=== PATIENT | female | born 1985 | race Caucasian/White ===

== ENCOUNTER 2021-11-18 06:53 | Inpatient (IN) ==
[2021-11-18] MEDS ORDERED: ONDANSETRON INJ 2 MG/ML 2 ML VIAL IV STA (07:24)
[2021-11-18] MEDS ORDERED: SODIUM CHLORIDE 0.9% 1000ML 1,000 ML IV SCH (07:26)
--- NOTE | 2021-11-18 07:35 | Emergency Department Note ---
History of Present Illness General Chief complaint: Shortness of Breath/Dyspnea Stated complaint: SOB,NAUSEA,VOMITING,CHEST PAIN Time Seen by Provider: 11/18/21 07:03 History of Present Illness Maximum Pain Intensity: 9 Patient is a 36-year-old female with past medical history significant for hypothyroidism, diabetes, and on suppressive doxycycline for recurrent abscesses who presents to the emergency department for evaluation of nausea, vomiting, chest pain and shortness of breath that started over the last 3 to 4 days. Patient notes that she saw her primary care provider last week. Apparently her blood sugars have been increasing, so he increased her Metformin and started her on Rybelsus. She states that since being on the Rybelsus, she has been nauseous and vomiting. She states that she was up hourly overnight vomiting and has not been able to keep any food or water down over the last several days. She feels quite weak and dizzy. She talked to her doctor yesterday and he told her to stop the Rybelsus and dropped down to the original dose of Metformin. This did not change her symptoms. She does not check her blood sugars at home. She also notes bilateral rib pain and shortness of breath that started overnight. She denies any fever or chills, cold or URI symptoms. No sick contacts at home. She does not have any abdominal pain or diarrhea or urinary symptoms. She is not vaccinated against influenza or Covid. Last menstrual period started yesterday. She is a smoker. Home Medications Medication Instructions Recorded Confirmed Type doxycycline hyclate 100 mg capsule 100 mg PO DAILY 11/18/21 11/18/21 History levothyroxine 175 mcg tablet 175 mcg PO DAILY 11/18/21 11/18/21 History metformin 500 mg tablet 500 mg PO BID 11/18/21 11/18/21 History Allergies Allergy/AdvReac Type Severity Reaction Status Date / Time Sulfa (Sulfonamide Allergy Mild Hives Verified 11/18/21 07:24 Antibiotics) Past Med/Surg History Medical History Diabetes Hypothyroidism Surgical History H/O tubal ligation History of thyroidectomy Social History Smoking Status: Current every day smoker Preferred Language: [place] marital status: Current Living Situation: Family current occupational status: unemployed Feels Safe at Home: Yes Review of Systems A total of 10 systems reviewed and were otherwise negative Physical Exam Vital Signs Vital Signs - 24 hr 11/18/21 06:57 11/18/21 08:00 11/18/21 09:11 Temperature 37.0 C Temperature Source Temporal Artery Scan Pulse Rate 145 H Pulse Rate [Left Finger] 131 H Pulse Rhythm [Left Finger] Irregular Pulse Strength [Left Finger] Bounding Respiratory Rate 20 30 H Respiratory Effort / Characteristics Non-Labored Labored Labored Respiratory Depth Normal Respiratory Pattern Regular Blood Pressure 115/74 Blood Pressure [Left Arm] 151/105 H Blood Pressure Mean 87 Blood Pressure Mean [Left Arm] 120 Blood Pressure Position Sitting Blood Pressure Position [Left Arm] Sitting Pulse Oximetry 99 97 Oxygen Delivery Method Room Air Room Air Sepsis Recent Fever Within 48 Hours No Sepsis New/Unexplained Change in Mental Status No Sepsis Action Taken by Nursing No Action Required Pulse Oximetry Post Tiitration 11/18/21 10:08 11/18/21 11:00 11/18/21 12:00 Temperature Temperature Source Pulse Rate Pulse Rate [Left Finger] 143 H 144 H Pulse Rhythm [Left Finger] Regular Regular Pulse Strength [Left Finger] Normal Normal Respiratory Rate 32 H 36 H Respiratory Effort / Characteristics Accessory Muscle Use Spontaneous Accessory Muscle Use Respiratory Depth Deep Deep Respiratory Pattern Rapid/Deep Rapid/Deep Blood Pressure Blood Pressure [Left Arm] 149/86 H 140/98 Blood Pressure Mean Blood Pressure Mean [Left Arm] 107 112 Blood Pressure Position Blood Pressure Position [Left Arm] Lying Lying Pulse Oximetry 93 93 Oxygen Delivery Method Room Air Room Air Room Air Sepsis Recent Fever Within 48 Hours Sepsis New/Unexplained Change in Mental Status Sepsis Action Taken by Nursing Pulse Oximetry Post Tiitration 100 CONSTITUTIONAL: Patient is an ill although nontoxic appearing 36-year-old female who is awake and alert and laying on the gurney. She is notably tachycardic. Not tachypneic. Oxygen saturation 99% on room air. EYES: Pupils equal, round, reactive to light and accommodation. EOMs intact without nystagmus. Sclera are anicteric. ENT: Tympanic membranes intact, with normal landmarks. External canals are clear. Oral and nasopharynx are clear. Mucous membranes are dry, no lesions, tongue and gums appear normal. NECK: Supple without lymphadenopathy. No thyromegaly. No meningeal signs. Full active range of motion without discomfort. CARDIOVASCULAR: Tachycardic rate and rhythm, with normal S1 and S2, no murmur or gallop or rub is heard. No carotid bruits auscultated. No JVD. Peripheral pulses easy to palpable. RESPIRATORY: Breath sounds equal and clear to auscultation without wheezes, rales, or rhonchi heard. Full and equal chest expansion without accessory muscle use or retractions. GI: Bowel sounds are present. Abdomen is soft, nontender, nondistended. No organomegaly. No pulsatile masses. No guarding or rebound. MUSCULOSKELETAL: Full range of motion of extremities x 4 with good strength. No cyanosis, edema, joint tenderness or swelling. No deformity. INTEGUMENTARY: No lesions or rash, normal skin turgor. NEUROLOGICAL: Alert, oriented, and cooperative. Cranial nerves, sensation and strength grossly intact. Pupils round, equal, and react to light, EOMs are full. LYMPH: No lymphadenopathy. Course Course The patient was seen and assessed as above. Old records are reviewed. She presents the emergency department for evaluation of chest pain, shortness of breath, nausea, vomiting weakness over the last 3 to 4 days. IV lock was initiated and laboratory studies were collected. CBC with differential, D- dimer, serum hCG, troponin, TSH, CMP, lipase, urinalysis were ordered. She was ordered a liter bolus of normal saline solution and Zofran 4 mg IV. Nursing staff asked if we could give her the Zofran ODT as they were having difficulty obtaining access. EKG was obtained, and is as noted below. A fingerstick BSG was collected and read high on the meter, greater than 600. Patient's presentation appears consistent with DKA. Patient was reviewed with attending physician, Dr. Martinez, who concurred. A VBG was ordered in addition to hemoglobin A1c, mag, phosphorus and a lactic acid. An insulin drip was started per protocol. Patient was reassessed. Nursing staff had just finished getting IVs and blood work. Discussed her current condition and that she would need to be admitted to the hospital. She is complaining of chest and rib discomfort. She is asking if she can drink. She was given ice chips and ordered fentanyl 50 mcg IV. At this point, despite not having most of the patient's laboratory studies back, consultation was placed with the [facility] hospitalist service, Dr. Shin for admission. Preadmission Covid test was negative. Chest x-ray notes low lung volumes with bibasilar opacities which may reflect an infectious process or atelectasis. Patient's laboratory studies are markedly abnormal. White count elevated at 26,700. D-dimer was elevated at 810. Electrolytes sodium 133, potassium 4.6, chloride 101, carbon dioxide 5, anion gap of 28. BUN 18, creatinine 1.56. Original lactate was 4, repeat in 2 hours was 6.1. Calcium 10.0, phosphorus 7.9, magnesium 2.4. Transaminases are normal. Troponin is negative. Lipase is within normal limits. TSH is low, free T4 within normal limits however. Serum hCG is negative. Urine microscopy grossly contaminated with blood, glucose, ketones and protein. Nitrate negative. Culture is pending. I was contacted by in-house pharmacist requesting changed of the patient's maintenance fluids from normal saline solution to half-normal saline solution with 20 mEq of KCl, this was done. Patient was seen by the hospitalist service and admitted for further care and management. Administered Medications Insulin Human Regular 250 (units/ Sodium Chloride) 250 mls @ 7.5 mls/hr IV .Q24H [facility]; Protocol Stop: 12/18/21 08:29 Last Admin: 11/18/21 09:40 Dose: 7.5 units/hr, 7.5 mls/hr Documented by: [id number] Cosigned by: [id number] Insulin Aspart (Insulin Aspart Per Unit) 0 units SC ACHS [facility] Stop: 12/18/21 11:29 Last Admin: 11/18/21 13:02 Dose: Not Given Documented by: [id number] Cosigned by: [id number] Miscellaneous (Pending 1/2nss+20meq Kcl Ivf) 1 ea N/A Q2H CAROL Stop: 12/18/21 13:50 Last Admin: 11/18/21 14:48 Dose: 1 ea Documented by: [id number] Ondansetron HCl (Ondansetron Inj 2 Mg/Ml 2 Ml Vial) 4 mg IV Q6H PRN PRN Reason: Nausea Stop: 12/18/21 13:50 Last Admin: 11/18/21 15:23 Dose: 4 mg Documented by: [id number] Discontinued Medications Fentanyl Citrate (Fentanyl Citrate 100 Mcg/2 Ml Vial) 50 mcg IV NOW STA Stop: 11/18/21 08:46 Last Admin: 11/18/21 09:09 Dose: 50 mcg Documented by: [id number] Sodium Chloride (Nss 1000ml) 1,000 mls @ 999 mls/hr IV .Q1H1M CAROL Stop: 11/18/21 08:26 Last Admin: 11/18/21 08:32 Dose: 999 mls/hr Documented by: [id number] Sodium Chloride (Nss 1000ml) 1,000 mls @ 250 mls/hr IV .Q4H CAROL Stop: 12/18/21 07:29 Last Infusion: 11/18/21 13:06 Dose: 0 mls/hr Documented by: [id number] Admin: 11/18/21 10:42 Dose: 1,000 mls/hr Documented by: [id number] Sodium Chloride (Nss 1000ml) 2,000 mls @ 999 mls/hr IV .Q2H1M ONE Stop: 11/18/21 12:44 Last Admin: 11/18/21 11:43 Dose: 999 mls/hr Documented by: [id number] Insulin Human Regular (Novolin-R Bolus From Bag) 7.5 units IV ONE ONE Stop: 11/18/21 09:46 Last Admin: 11/18/21 09:53 Dose: 7.5 units Documented by: [id number] Cosigned by: [id number] Chi (Stat Iv Infusion Titration Per Protocol) 1 ea N/A NOW STA Stop: 11/18/21 08:24 Last Admin: 11/18/21 08:23 Dose: 1 ea Documented by: [id number] Chi (Stat Iv Infusion Titration Per Protocol) 1 ea N/A NOW STA Stop: 11/18/21 08:24 Last Admin: 11/18/21 08:23 Dose: 1 ea Documented by: [id number] Chi (Dka Goal Range 150-250 Mg/Dl) 1 ea N/A ONE ONE Stop: 11/18/21 08:24 Last Admin: 11/18/21 08:23 Dose: 1 ea Documented by: [id number] Ondansetron HCl (Ondansetron Inj 2 Mg/Ml 2 Ml Vial) 4 mg IV NOW STA Stop: 11/18/21 07:25 Last Admin: 11/18/21 08:32 Dose: Not Given Documented by: [id number] Ondansetron HCl (Ondansetron 4 Mg Od Tab) 4 mg PO NOW STA Stop: 11/18/21 07:57 Last Admin: 11/18/21 08:00 Dose: 4 mg Documented by: [id number] Medical Decision Making Differential Diagnosis Differential diagnoses entertained included viral illness including influenza or Covid, electrolyte or metabolic abnormality, dehydration, infectious versus inflammatory colitis/enteritis, foodborne illness, DKA, sepsis, pulmonary embolism, pneumonia, among others. Medical Records Attestation: I reviewed the patient's medical records. Home Medications Current Medication List: was personally reviewed by me Laboratory Data Attestation: I reviewed the patient's lab results. Result diagrams: 11/18/21 08:29 11/18/21 13:27 Lab Results 11/18/21 11/18/21 11/18/21 Range/Units 08:12 08:29 08:29 WBC 26.75 H (4.8-10.8) K/uL RBC 5.58 H (4.2-5.4) M/uL Hgb 17.5 H (12.0-16.0) g/dL Hct 53.8 H (37-47) % MCV 96.4 (80-100) fL MCH 31.4 (25-34) pg MCHC 32.5 (32-36) g/dL RDW Std Deviation 48.0 H (36.4-46.3) fL RDW Coeff of Malena 13.6 (11.5-14.5) % Plt Count 567 H (130-400) K/uL MPV 11.5 H (7.4-10.4) fL Immature Gran % (Auto) 2.5 % Neut % (Auto) 84.6 % Lymph % (Auto) 7.9 % [place] % (Auto) 4.8 % Eos % (Auto) 0.1 % Baso % (Auto) 0.1 % Neut # (Auto) 22.62 H (1.4-6.5) K/uL Lymph # (Auto) 2.11 (1.2-3.4) K/uL [place] # (Auto) 1.29 H (0.11-0.59) K/uL Eos # (Auto) 0.02 (0-0.5) K/uL Baso # (Auto) 0.04 (0-0.2) K/uL Immature Gran # (Auto) 0.67 H (0.00-0.02) K/uL D-Dimer 810 H* (0-500) ug/L FEU VBG pH VBG pCO2 VBG pO2 VBG HCO3 VBG O2 Saturation VBG Base Excess Barometric Pressure Sodium (136-145) mmol/L Potassium (3.5-5.1) mmol/L Chloride (98-107) mmol/L Carbon Dioxide (21-32) mmol/L Anion Gap (3-11) BUN (7-18) mg/dl Creatinine (0.6-1.2) mg/dl Est Cr Clr Drug Dosing ml/min Est GFR ( Amer) ml/min Est GFR (Non-Af Amer) ml/min BUN/Creatinine Ratio (10-20) Glucose (70-99) mg/dl POC Glucose > 600 H* (70-99) mg/dl Estimat Average Glucose mg/dl Hemoglobin A1c (4.5-5.6) % Lactate (0.4-2.0) mmol/L Calcium (8.5-10.1) mg/dl Phosphorus (2.5-4.9) mg/dl Magnesium (1.8-2.4) mg/dl Total Bilirubin (0.2-1) mg/dl AST (15-37) U/L ALT (12-78) Alkaline Phosphatase (45-117) U/L Troponin I (0-0.045) ng/ml Total Protein (6.4-8.2) gm/dl Albumin (3.4-5.0) gm/dl Globulin (2.5-4.0) gm/dl Albumin/Globulin Ratio (0.9-2) Lipase (73-393) U/L Beta-Hydroxybutyric Acd (0.2-2.81) mg/dl TSH (0.300-4.500) uIu/ml Free T4 (0.8-1.6) ng/dl HCG, Qual (Negative) Urine Color Urine Appearance (Clear) Urine pH (4.5-7.5) Ur Specific [place] (1.000-1.030) Urine Protein (Negative) Urine Glucose (UA) (Negative) Urine Ketones (Negative) Urine Blood (Negative) Urine Nitrite (Negative) Urine Bilirubin (Negative) Urine Urobilinogen (Negative) Ur Leukocyte Esterase (Negative) Urine RBC (0-4) /hpf Urine WBC (0-5) /hpf Ur Epithelial Cells (0-5) /lpf Urine Bacteria (Negative) SARS-CoV-2, RNA, NAAT (NEGATIVE) 11/18/21 11/18/21 11/18/21 Range/Units 08:29 08:29 08:30 WBC (4.8-10.8) K/uL RBC (4.2-5.4) M/uL Hgb (12.0-16.0) g/dL Hct (37-47) % MCV (80-100) fL MCH (25-34) pg MCHC (32-36) g/dL RDW Std Deviation (36.4-46.3) fL RDW Coeff of Malena (11.5-14.5) % Plt Count (130-400) K/uL MPV (7.4-10.4) fL Immature Gran % (Auto) % Neut % (Auto) % Lymph % (Auto) % [place] % (Auto) % Eos % (Auto) % Baso % (Auto) % Neut # (Auto) (1.4-6.5) K/uL Lymph # (Auto) (1.2-3.4) K/uL [place] # (Auto) (0.11-0.59) K/uL Eos # (Auto) (0-0.5) K/uL Baso # (Auto) (0-0.2) K/uL Immature Gran # (Auto) (0.00-0.02) K/uL D-Dimer (0-500) ug/L FEU VBG pH Cancelled VBG pCO2 Cancelled VBG pO2 Cancelled VBG HCO3 Cancelled VBG O2 Saturation Cancelled VBG Base Excess Cancelled Barometric Pressure Cancelled Sodium 133 L (136-145) mmol/L Potassium 4.6 (3.5-5.1) mmol/L Chloride 101 (98-107) mmol/L Carbon Dioxide 5 L* (21-32) mmol/L Anion Gap 28.0 H (3-11) BUN 18 (7-18) mg/dl Creatinine 1.56 H (0.6-1.2) mg/dl Est Cr Clr Drug Dosing 48.5 ml/min Est GFR ( Amer) 48.3 ml/min Est GFR (Non-Af Amer) 41.7 ml/min BUN/Creatinine Ratio 11.5 (10-20) Glucose 669 H* (70-99) mg/dl POC Glucose (70-99) mg/dl Estimat Average Glucose mg/dl Hemoglobin A1c (4.5-5.6) % Lactate (0.4-2.0) mmol/L Calcium 10.0 (8.5-10.1) mg/dl Phosphorus 7.9 H (2.5-4.9) mg/dl Magnesium 2.4 (1.8-2.4) mg/dl Total Bilirubin 0.4 (0.2-1) mg/dl AST 11 L (15-37) U/L ALT 30 (12-78) Alkaline Phosphatase 152 H (45-117) U/L Troponin I < 0.015 (0-0.045) ng/ml Total Protein 9.7 H (6.4-8.2) gm/dl Albumin 4.3 (3.4-5.0) gm/dl Globulin 5.4 H (2.5-4.0) gm/dl Albumin/Globulin Ratio 0.8 L (0.9-2) Lipase 186 (73-393) U/L Beta-Hydroxybutyric Acd 119.39 H (0.2-2.81) mg/dl TSH 0.055 L (0.300-4.500) uIu/ml Free T4 1.47 (0.8-1.6) ng/dl HCG, Qual Negative (Negative) Urine Color Urine Appearance (Clear) Urine pH (4.5-7.5) Ur Specific [place] (1.000-1.030) Urine Protein (Negative) Urine Glucose (UA) (Negative) Urine Ketones (Negative) Urine Blood (Negative) Urine Nitrite (Negative) Urine Bilirubin (Negative) Urine Urobilinogen (Negative) Ur Leukocyte Esterase (Negative) Urine RBC (0-4) /hpf Urine WBC (0-5) /hpf Ur Epithelial Cells (0-5) /lpf Urine Bacteria (Negative) SARS-CoV-2, RNA, NAAT (NEGATIVE) 12/23/21 12/23/21 12/23/21 Range/Units 08:30 08:30 08:30 WBC (4.8-10.8) K/uL RBC (4.2-5.4) M/uL Hgb (12.0-16.0) g/dL Hct (37-47) % MCV (80-100) fL MCH (25-34) pg MCHC (32-36) g/dL RDW Std Deviation (36.4-46.3) fL RDW Coeff of Malena (11.5-14.5) % Plt Count (130-400) K/uL MPV (7.4-10.4) fL Immature Gran % (Auto) % Neut % (Auto) % Lymph % (Auto) % [place] % (Auto) % Eos % (Auto) % Baso % (Auto) % Neut # (Auto) (1.4-6.5) K/uL Lymph # (Auto) (1.2-3.4) K/uL [place] # (Auto) (0.11-0.59) K/uL Eos # (Auto) (0-0.5) K/uL Baso # (Auto) (0-0.2) K/uL Immature Gran # (Auto) (0.00-0.02) K/uL D-Dimer (0-500) ug/L FEU VBG pH VBG pCO2 VBG pO2 VBG HCO3 VBG O2 Saturation VBG Base Excess Barometric Pressure Sodium (136-145) mmol/L Potassium (3.5-5.1) mmol/L Chloride (98-107) mmol/L Carbon Dioxide (21-32) mmol/L Anion Gap (3-11) BUN (7-18) mg/dl Creatinine (0.6-1.2) mg/dl Est Cr Clr Drug Dosing ml/min Est GFR ( Amer) ml/min Est GFR (Non-Af Amer) ml/min BUN/Creatinine Ratio (10-20) Glucose (70-99) mg/dl POC Glucose (70-99) mg/dl Estimat Average Glucose 367 mg/dl Hemoglobin A1c 14.4 H (4.5-5.6) % Lactate 4.0 H* (0.4-2.0) mmol/L Calcium (8.5-10.1) mg/dl Phosphorus Cancelled (2.5-4.9) mg/dl Magnesium Cancelled (1.8-2.4) mg/dl Total Bilirubin (0.2-1) mg/dl AST (15-37) U/L ALT (12-78) Alkaline Phosphatase (45-117) U/L Troponin I (0-0.045) ng/ml Total Protein (6.4-8.2) gm/dl Albumin (3.4-5.0) gm/dl Globulin (2.5-4.0) gm/dl Albumin/Globulin Ratio (0.9-2) Lipase (73-393) U/L Beta-Hydroxybutyric Acd (0.2-2.81) mg/dl TSH (0.300-4.500) uIu/ml Free T4 (0.8-1.6) ng/dl HCG, Qual (Negative) Urine Color Urine Appearance (Clear) Urine pH (4.5-7.5) Ur Specific [place] (1.000-1.030) Urine Protein (Negative) Urine Glucose (UA) (Negative) Urine Ketones (Negative) Urine Blood (Negative) Urine Nitrite (Negative) Urine Bilirubin (Negative) Urine Urobilinogen (Negative) Ur Leukocyte Esterase (Negative) Urine RBC (0-4) /hpf Urine WBC (0-5) /hpf Ur Epithelial Cells (0-5) /lpf Urine Bacteria (Negative) SARS-CoV-2, RNA, NAAT (NEGATIVE) 11/18/21 11/18/21 11/18/21 Range/Units 09:07 09:28 09:57 WBC (4.8-10.8) K/uL RBC (4.2-5.4) M/uL Hgb (12.0-16.0) g/dL Hct (37-47) % MCV (80-100) fL MCH (25-34) pg MCHC (32-36) g/dL RDW Std Deviation (36.4-46.3) fL RDW Coeff of Malena (11.5-14.5) % Plt Count (130-400) K/uL MPV (7.4-10.4) fL Immature Gran % (Auto) % Neut % (Auto) % Lymph % (Auto) % [place] % (Auto) % Eos % (Auto) % Baso % (Auto) % Neut # (Auto) (1.4-6.5) K/uL Lymph # (Auto) (1.2-3.4) K/uL [place] # (Auto) (0.11-0.59) K/uL Eos # (Auto) (0-0.5) K/uL Baso # (Auto) (0-0.2) K/uL Immature Gran # (Auto) (0.00-0.02) K/uL D-Dimer (0-500) ug/L FEU VBG pH 6.96 L VBG pCO2 26 L VBG pO2 43 VBG HCO3 6 VBG O2 Saturation 67.7 VBG Base Excess -25.1 Barometric Pressure 736.6 Sodium (136-145) mmol/L Potassium (3.5-5.1) mmol/L Chloride (98-107) mmol/L Carbon Dioxide (21-32) mmol/L Anion Gap (3-11) BUN (7-18) mg/dl Creatinine (0.6-1.2) mg/dl Est Cr Clr Drug Dosing ml/min Est GFR ( Amer) ml/min Est GFR (Non-Af Amer) ml/min BUN/Creatinine Ratio (10-20) Glucose (70-99) mg/dl POC Glucose 594 H* (70-99) mg/dl Estimat Average Glucose mg/dl Hemoglobin A1c (4.5-5.6) % Lactate (0.4-2.0) mmol/L Calcium (8.5-10.1) mg/dl Phosphorus (2.5-4.9) mg/dl Magnesium (1.8-2.4) mg/dl Total Bilirubin (0.2-1) mg/dl AST (15-37) U/L ALT (12-78) Alkaline Phosphatase (45-117) U/L Troponin I (0-0.045) ng/ml Total Protein (6.4-8.2) gm/dl Albumin (3.4-5.0) gm/dl Globulin (2.5-4.0) gm/dl Albumin/Globulin Ratio (0.9-2) Lipase (73-393) U/L Beta-Hydroxybutyric Acd (0.2-2.81) mg/dl TSH (0.300-4.500) uIu/ml Free T4 (0.8-1.6) ng/dl HCG, Qual (Negative) Urine Color Urine Appearance (Clear) Urine pH (4.5-7.5) Ur Specific [place] (1.000-1.030) Urine Protein (Negative) Urine Glucose (UA) (Negative) Urine Ketones (Negative) Urine Blood (Negative) Urine Nitrite (Negative) Urine Bilirubin (Negative) Urine Urobilinogen (Negative) Ur Leukocyte Esterase (Negative) Urine RBC (0-4) /hpf Urine WBC (0-5) /hpf Ur Epithelial Cells (0-5) /lpf Urine Bacteria (Negative) SARS-CoV-2, RNA, NAAT NEGATIVE (NEGATIVE) 11/18/21 11/18/21 11/18/21 Range/Units 10:47 11:08 11:34 WBC (4.8-10.8) K/uL RBC (4.2-5.4) M/uL Hgb (12.0-16.0) g/dL Hct (37-47) % MCV (80-100) fL MCH (25-34) pg MCHC (32-36) g/dL RDW Std Deviation (36.4-46.3) fL RDW Coeff of Malena (11.5-14.5) % Plt Count (130-400) K/uL MPV (7.4-10.4) fL Immature Gran % (Auto) % Neut % (Auto) % Lymph % (Auto) % [place] % (Auto) % Eos % (Auto) % Baso % (Auto) % Neut # (Auto) (1.4-6.5) K/uL Lymph # (Auto) (1.2-3.4) K/uL [place] # (Auto) (0.11-0.59) K/uL Eos # (Auto) (0-0.5) K/uL Baso # (Auto) (0-0.2) K/uL Immature Gran # (Auto) (0.00-0.02) K/uL D-Dimer (0-500) ug/L FEU VBG pH VBG pCO2 VBG pO2 VBG HCO3 VBG O2 Saturation VBG Base Excess Barometric Pressure Sodium (136-145) mmol/L Potassium (3.5-5.1) mmol/L Chloride (98-107) mmol/L Carbon Dioxide (21-32) mmol/L Anion Gap (3-11) BUN (7-18) mg/dl Creatinine (0.6-1.2) mg/dl Est Cr Clr Drug Dosing ml/min Est GFR ( Amer) ml/min Est GFR (Non-Af Amer) ml/min BUN/Creatinine Ratio (10-20) Glucose (70-99) mg/dl POC Glucose 559 H* 504 H* (70-99) mg/dl Estimat Average Glucose mg/dl Hemoglobin A1c (4.5-5.6) % Lactate 6.1 H* (0.4-2.0) mmol/L Calcium (8.5-10.1) mg/dl Phosphorus (2.5-4.9) mg/dl Magnesium (1.8-2.4) mg/dl Total Bilirubin (0.2-1) mg/dl AST (15-37) U/L ALT (12-78) Alkaline Phosphatase (45-117) U/L Troponin I (0-0.045) ng/ml Total Protein (6.4-8.2) gm/dl Albumin (3.4-5.0) gm/dl Globulin (2.5-4.0) gm/dl Albumin/Globulin Ratio (0.9-2) Lipase (73-393) U/L Beta-Hydroxybutyric Acd (0.2-2.81) mg/dl TSH (0.300-4.500) uIu/ml Free T4 (0.8-1.6) ng/dl HCG, Qual (Negative) Urine Color Urine Appearance (Clear) Urine pH (4.5-7.5) Ur Specific [place] (1.000-1.030) Urine Protein (Negative) Urine Glucose (UA) (Negative) Urine Ketones (Negative) Urine Blood (Negative) Urine Nitrite (Negative) Urine Bilirubin (Negative) Urine Urobilinogen (Negative) Ur Leukocyte Esterase (Negative) Urine RBC (0-4) /hpf Urine WBC (0-5) /hpf Ur Epithelial Cells (0-5) /lpf Urine Bacteria (Negative) SARS-CoV-2, RNA, NAAT (NEGATIVE) 11/18/21 Range/Units 12:20 WBC (4.8-10.8) K/uL RBC (4.2-5.4) M/uL Hgb (12.0-16.0) g/dL Hct (37-47) % MCV (80-100) fL MCH (25-34) pg MCHC (32-36) g/dL RDW Std Deviation (36.4-46.3) fL RDW Coeff of Malena (11.5-14.5) % Plt Count (130-400) K/uL MPV (7.4-10.4) fL Immature Gran % (Auto) % Neut % (Auto) % Lymph % (Auto) % [place] % (Auto) % Eos % (Auto) % Baso % (Auto) % Neut # (Auto) (1.4-6.5) K/uL Lymph # (Auto) (1.2-3.4) K/uL [place] # (Auto) (0.11-0.59) K/uL Eos # (Auto) (0-0.5) K/uL Baso # (Auto) (0-0.2) K/uL Immature Gran # (Auto) (0.00-0.02) K/uL D-Dimer (0-500) ug/L FEU VBG pH VBG pCO2 VBG pO2 VBG HCO3 VBG O2 Saturation VBG Base Excess Barometric Pressure Sodium (136-145) mmol/L Potassium (3.5-5.1) mmol/L Chloride (98-107) mmol/L Carbon Dioxide (21-32) mmol/L Anion Gap (3-11) BUN (7-18) mg/dl Creatinine (0.6-1.2) mg/dl Est Cr Clr Drug Dosing ml/min Est GFR ( Amer) ml/min Est GFR (Non-Af Amer) ml/min BUN/Creatinine Ratio (10-20) Glucose (70-99) mg/dl POC Glucose (70-99) mg/dl Estimat Average Glucose mg/dl Hemoglobin A1c (4.5-5.6) % Lactate (0.4-2.0) mmol/L Calcium (8.5-10.1) mg/dl Phosphorus (2.5-4.9) mg/dl Magnesium (1.8-2.4) mg/dl Total Bilirubin (0.2-1) mg/dl AST (15-37) U/L ALT (12-78) Alkaline Phosphatase (45-117) U/L Troponin I (0-0.045) ng/ml Total Protein (6.4-8.2) gm/dl Albumin (3.4-5.0) gm/dl Globulin (2.5-4.0) gm/dl Albumin/Globulin Ratio (0.9-2) Lipase (73-393) U/L Beta-Hydroxybutyric Acd (0.2-2.81) mg/dl TSH (0.300-4.500) uIu/ml Free T4 (0.8-1.6) ng/dl HCG, Qual (Negative) Urine Color Red Urine Appearance Cloudy A (Clear) Urine pH 5.0 (4.5-7.5) Ur Specific [place] >= 1.030 (1.000-1.030) Urine Protein 3+ H (Negative) Urine Glucose (UA) 2+ H (Negative) Urine Ketones 4+ H (Negative) Urine Blood 3+ H (Negative) Urine Nitrite Negative (Negative) Urine Bilirubin 1+ H (Negative) Urine Urobilinogen Negative (Negative) Ur Leukocyte Esterase Negative (Negative) Urine RBC >30 H (0-4) /hpf Urine WBC >30 H (0-5) /hpf Ur Epithelial Cells >30 H (0-5) /lpf Urine Bacteria 1+ H (Negative) SARS-CoV-2, RNA, NAAT (NEGATIVE) Imaging Data Attestation: I personally reviewed and interpreted this imaging study as follows: Radiologist's Impression: Chest X-Ray 11/18/21 07:24 XR chest 1V portable CLINICAL HISTORY: Shortness of breath. Chest pain. COMPARISON STUDY: No previous studies for comparison. FINDINGS: Right neck surgical clips are incidentally noted. Lung volumes are mildly diminished. Bibasilar opacities are present. There is no evidence for pu lmonary edema. Cardiac size is normal. IMPRESSION: Low lung volumes with bibasilar opacities which may reflect an infectious process or atelectasis. Radiographic follow-up is recommended. ACT 112: Negative or not required by law. Electronically signed by: Quintin Thomas M.D. 11/18/2021 7:59 AM ECG Data Attestation: I personally reviewed and interpreted this ECG as follows: Indication: + SOB/dyspnea, + tachycardia, + vomiting and + weakness Rate (beats per minute): 143 Rhythm: + sinus tachycardia ECG [place]: + Right axis deviation ECG ST segments: + Normal ST segments Comparison ECG Date: no prior available MDM Narrative See ED Course. Impression & Plan DKA (diabetic ketoacidosis), Nausea and vomiting, Tachycardia, Shortness of breath Discharge Plan Visit Data Chief Complaint: Shortness of Breath/Dyspnea Stated Complaint: SOB,NAUSEA,VOMITING,CHEST PAIN ED Provider: Marquise Martinez ED Midlevel Provider: Landen Matute Discharge Problem: DKA (diabetic ketoacidosis), Nausea and vomiting, Tachycardia, Shortness of breath Patient Disposition: Being Evaluated by Hospitalist
[2021-11-18] MEDS ORDERED: ONDANSETRON 4 MG OD TAB PO STA (07:56)
--- NOTE | 2021-11-18 08:00 | XRay Report ---
XR chest 1V portable CLINICAL HISTORY: Shortness of breath. Chest pain. COMPARISON STUDY: No previous studies for comparison. FINDINGS: Right neck surgical clips are incidentally noted. Lung volumes are mildly diminished. Bibas ilar opacities are present. There is no evidence for pulmonary edema. Cardiac size is normal. IMPRESSION: Low lung volumes with bibasilar opacities which may reflect an infectious process or ate lectasis. Radiographic follow-up is recommended. ACT 112: Negative or not required by law. Electronically signed by: Quintin Thomas M.D. 11/18/2021 7:59 AM
[2021-11-18] MEDS ORDERED: DKA GOAL RANGE 150-250 mg/dl ONE (08:23)
[2021-11-18] MEDS ORDERED: STAT IV Infusion **Titration per Protocol STA ×4 (08:23→10:47)
[2021-11-18] MEDS ORDERED: PHARMACY GLYCEMIC MGMT CONSULT PRN ×3 (08:23→17:50)
[2021-11-18 08:43] LABS: Hematocrit (blood only) 53.8 % (37-47); Hemoglobin 17.5 g/dL (12.0-16.0); Mean Corpuscular Hemoglobin 31.4 pg (25-34); Mean Corpuscular Hgb Conc 32.5 g/dL (32-36); Mean Corpuscular Volume 96.4 fL (80-100); Mean Platelet Volume 11.5 fL (7.4-10.4); Platelet Count 567 K/uL (130-400); RDW Coefficient of Variation 13.6 % (11.5-14.5); Red Blood Count 5.58 M/uL (4.2-5.4); White Blood Count 26.75 K/uL (4.8-10.8)
[2021-11-18] MEDS ORDERED: fentaNYL citrate 100 MCG/2 ML VIAL IV STA (08:45)
[2021-11-18 08:57] LABS: D Dimer 810 ug/L FEU (0-500)
[2021-11-18 09:16] LABS: Pregnancy Test, Serum Negative (Negative)
[2021-11-18 09:28] LABS: Alanine Aminotransferase 30 (12-78); Albumin Globulin Ratio 0.8 (0.9-2); Albumin Level 4.3 gm/dl (3.4-5.0); Alkaline Phosphatase 152 U/L (45-117); Aspartate Aminotransferase 11 U/L (15-37); BUN Creatinine Ratio 11.5 (10-20); Bilirubin,Total 0.4 mg/dl (0.2-1); Blood Urea Nitrogen 18 mg/dl (7-18); Carbon Dioxide 5 mmol/L (21-32); Chloride 101 mmol/L (98-107); Creatinine Clr Calc Pharmacy 48.5 ml/min; Est GFR (African American) 48.3 ml/min; Est GFR (Non-African American) 41.7 ml/min; Globulin 5.4 gm/dl (2.5-4.0); Glucose 669 mg/dl (70-99); Lipase 186 U/L (73-393); Magnesium 2.4 mg/dl (1.8-2.4); Phosphorus 7.9 mg/dl (2.5-4.9); Potassium 4.6 mmol/L (3.5-5.1); Sodium 133 mmol/L (136-145); Thyroid Stimulating Hormone 0.055 uIu/ml (0.300-4.500); Total Protein 9.7 gm/dl (6.4-8.2); Troponin I < 0.015 ng/ml (0-0.045)
[2021-11-18] MEDS: INSULIN REGULAR 250 UNITS in SODIUM CHLORIDE 0.9% 247.5 ML IV SCH (09:40)
[2021-11-18 09:43] LABS: Base Excess VBG -25.1 mEq/L; Oxygen Saturation VBG 67.7 %
[2021-11-18] MEDS ORDERED: CARBOHYDRATES FOR HYPOGLYCEMIA PO PRN (09:45)
[2021-11-18] MEDS ORDERED: DEXTROSE 50% 50 ML SYRINGE IV PRN (09:45)
[2021-11-18] MEDS ORDERED: NovoLIN-R BOLUS FROM BAG IV ONE (09:45)
[2021-11-18] MEDS ORDERED: GLUCOSE 40% GEL 15 GM TUBE PO PRN (09:45)
[2021-11-18] MEDS ORDERED: GLUCAGON FOR INJ 1 MG VIAL IM PRN (09:45)
[2021-11-18] MEDS ORDERED: GLUCOSE 10 TABS/TUBE PO PRN (09:45)
[2021-11-18 09:50] LABS: pH VBG 6.96 (7.36-7.41)
[2021-11-18 10:00] LABS: Basophils # (auto) 0.04 K/uL (0-0.2); Basophils % (auto) 0.1 %; Eosinophils # (auto) 0.02 K/uL (0-0.5); Eosinophils % (auto) 0.1 %; Immature Granulocytes # (auto) 0.67 K/uL (0.00-0.02); Immature Granulocytes % (auto) 2.5 %; Lymphocytes # (auto) 2.11 K/uL (1.2-3.4); Lymphocytes % (auto) 7.9 %; Monocytes # (auto) 1.29 K/uL (0.11-0.59); Monocytes % (auto) 4.8 %; Neutrophils # (auto) 22.62 K/uL (1.4-6.5); Neutrophils % (auto) 84.6 %
[2021-11-18 10:10] LABS: T4 Free Thyroxine 1.47 ng/dl (0.8-1.6)
[2021-11-18] MEDS ORDERED: SODIUM CHLOR 0.45% + 20MEQ KCL 20 MEQ/1,000 ML BAG IV SCH (10:30)
[2021-11-18 10:38] LABS: Estimated Average Glucose 367 mg/dl; Hemoglobin A1C 14.4 % (4.5-5.6)
[2021-11-18] MEDS: SODIUM CHLORIDE 0.9% 1000ML 1,000 ML IV SCH ×2 (10:42→17:47)
[2021-11-18] MEDS ORDERED: SODIUM CHLORIDE 0.9% 1000ML 2,000 ML IV ONE (10:44)
[2021-11-18 11:01] LABS: Beta-Hydroxybutyrate 119.39 mg/dl (0.2-2.81)
[2021-11-18] MEDS: INSULIN ASPART PER UNIT SC SCH ×2 (13:02→22:33)
[2021-11-18 13:36] LABS: Appearance Urine Cloudy (Clear); Bilirubin Urine 1+ (Negative); Blood Urine 3+ (Negative); Color Urine Red; Glucose Urine UA 2+ (Negative); Ketones Urine 4+ (Negative); Leukocyte Esterase Urine Negative (Negative); Nitrite Urine Negative (Negative); Protein Urine 3+ (Negative); Specific Gravity Urine >= 1.030 (1.000-1.030); Urobilinogen Urine Negative (Negative)
[2021-11-18] MEDS ORDERED: POLYETHYLENE (MIRALAX) 17 GM PACK PO PRN (13:51)
[2021-11-18] MEDS ORDERED: PENDING D5 1/2NS+20mEq KCL IVF SCH (13:51)
[2021-11-18] MEDS ORDERED: INSULIN ASPART PER UNIT SC SCH (13:51)
[2021-11-18] MEDS ORDERED: DC ALL PREVIOUSLY ORDERED DIABETES MEDS ONE (13:51)
[2021-11-18] MEDS ORDERED: HHS GOAL RANGE 250-350 mg/dl ONE (13:51)
[2021-11-18] MEDS ORDERED: INSULIN REGULAR 250 UNITS in SODIUM CHLORIDE 0.9% 247.5 ML IV SCH (13:51)
[2021-11-18] MEDS ORDERED: ONDANSETRON INJ 2 MG/ML 2 ML VIAL IV PRN (13:51)
[2021-11-18] MEDS ORDERED: MoRPHine SULFATE 2 MG/ML CARP IV PRN (13:51)
[2021-11-18 13:54] LABS: Epithelial Cell Urine >30 /lpf (0-5); RBC Urine >30 /hpf (0-4); WBC Urine >30 /hpf (0-5)
[2021-11-18 13:55] LABS: Bacteria Urine 1+ (Negative)
[2021-11-18 14:06] LABS: BUN Creatinine Ratio 13.9 (10-20); Calcium 7.4 mg/dl (8.5-10.1); Creatinine Clr Calc Pharmacy 59.6 ml/min; Est GFR (Non-African American) 53.5 ml/min; Magnesium 1.7 mg/dl (1.8-2.4)
[2021-11-18] MEDS ORDERED: cefTRIAXone SODIUM 1,000 MG in DEXTROSE 5% 50 ML IV SCH (14:15)
[2021-11-18] MEDS ORDERED: NORMOSOL-R 1,000 ML IV SCH (14:15)
[2021-11-18 14:29] LABS: Potassium 3.8 mmol/L (3.5-5.1)
[2021-11-18 14:48] LABS: Beta-Hydroxybutyrate 79.82 mg/dl (0.2-2.81); Phosphorus 3.3 mg/dl (2.5-4.9)
[2021-11-18] MEDS: PENDING 1/2NSS+20mEq KCL IVF SCH (14:48)
--- NOTE | 2021-11-18 15:31 | Pharmacy Report ---
Pharmacy Glycemic Short Note 2 - Date of Service November 18, 2021 - Glycemic Short BSG Results (Last 24 hours): 11/18/21 11/18/21 11/18/21 08:12 08:29 09:57 Glucose 669 H* POC Glucose > 600 H* 594 H* 11/18/21 11/18/21 11/18/21 10:47 11:34 12:35 Glucose POC Glucose 559 H* 504 H* 508 H* 11/18/21 11/18/21 11/18/21 13:27 13:38 14:30 Glucose 420 H* POC Glucose 345 H* 328 H* OUTPATIENT ANTIDIABETIC REGIMEN: * Metformin 500 mg PO BIDM * Rybelsus 3 mg PO daily and Jardiance 10 mg PO daily both filled for the first time on 11/12/21 and 11/17/21 respectively * HbA1c: 14.4% (11/18/21) ASSESSMENT: * TH is a 36 year old female who presents to ED with shortness of breath, chest pain, nausea, and vomiting * Initial labs indicated severe DKA * BS mg/dL * Serum bicarbonate: 5 mmol/L * Anion gap: 28 * Beta-hydroxybutyric acid: 119 mg/dL * pH: 6.96 * IV fluids and insulin infusion initiated for DKA and IV antibiotics (ceftriaxone/azithromycin) for possible pneumonia PLAN FOR INPATIENT GLYCEMIC CONTROL: * Hold outpatient oral diabetes medications * IV insulin infusion * Basal insulin * Hold for now until DKA improvement/anion gap closed * Bolus insulin * Per insulin infusion calculator PLAN FOR DISCHARGE: * tbd * HbA1c of 14.4% suggests that patient will require SC basal/bolus insulin at discharge
[2021-11-18] MEDS ORDERED: OPTIRAY 320 100ml IV ONE (15:37)
[2021-11-18] MEDS ORDERED: AZITHROMYCIN 500 MG in DEXTROSE 5% 250 ML IV ONE (16:15)
--- NOTE | 2021-11-18 16:22 | CT Scan Report ---
CT chest diagnostic w con CLINICAL HISTORY: hypoxia, ?etiology unclear, severe DKA TECHNIQUE: Multidetector row helical CT of the chest was performed. Coronal and sagittal reformations were obtained. Automated dose lowering techniques and/or adjustment according to patient size were u tilized for this exam. Comparison: None available at the time of this dictation. FINDINGS: Lungs and pleura: Groundglass and consolidative opacities are seen most prominent in the lower lobes. Heart and pericardium: Heart size is normal. No pericardial effusion. Vessels: Unremarkable. Mediastinum and leonie: Unremarkable. Chest wall and lower neck: The right lobe of the thyroid is absent. Abdomen: Unremarkable. Bones: Unremarkable. IMPRESSION: Groundglass and consolidative opacities in the bilateral lower lobes compatible with aspiration and/o r pneumonia. ACT 112: Negative or not required by law. Electronically signed by: Jorge Og M.D. 11/18/2021 4:21 PM
[2021-11-18] MEDS: MAGNESIUM SULFATE / D5W 1 GM/100 ML BAG IV SCH ×2 (17:04→19:41)
[2021-11-18 17:18] LABS: Influenza A virus by PCR Negative (Neg); Influenza B virus by PCR Negative (Neg); RSV by PCR Negative (Neg); SARS CoV2 RNA(COVID-19) InHosp NEGATIVE (Negative)
--- NOTE | 2021-11-18 17:59 | History & Physical Report ---
Date of Service November 18, 2021 Assessment & Plan (1) DKA (diabetic ketoacidosis): Plan: While she carries a history sounded until recently most compatible with slowly building insulin resistance, her abrupt worsening, marked elevation in glucoses over a short period of time, and current physiology all absolutely point strongly towards new onset type 1 diabetes. Because of the overall on situation where she seem to be working on insulin resistance, and now appears to have developed insulin deficiency, as well as the relative rarity of someone developing type 1 diabetes in her age bracket, I did send a C-peptide to try to help clarify the situation. -Marked metabolic acidosisinitial pH 6.96/initial bicarb 5 -Aggressive fluid resuscitation -IV insulin -Very close follow-up (2) Diabetes: Plan: See abovewill need a lot of education, appears to be new onset type 1 diabetes (3) Hypothyroidism: Plan: Chronic, continue Synthroid, I suspect the low TSH is euthyroid sick not iatrogenic hyperthyroidism (4) Acute renal failure: Plan: Due to volume loss from DKA. Improving with IV fluidsaggressive fluid management and follow (5) Abdominal pain: Plan: This seems to have faded as the day progressed, suspect it was in general pain related to DKA, as well as a residual discomfort from nausea and vomiting. Continue to follow, serial exams, supportive care, but this seems to be improv ing (6) Pneumonia: Plan: Covid and flu negative, treating as community-acquired pneumoniaZithromax, Rocephin, oxygen support/supportive care. Continue to follow (7) DVT prophylaxis: Plan: Lovenox (8) Discharge planning issues: Plan: Initially admitted to telemetry, before even leaving the ER, while her condition is worsening, upgraded her status to ICU and discussed with signal maintainer helper. She do es live at home with her , anticipate her being able to go home once her acute issues have improved Plan: Patient seen many, many times in follow-up throughout the day following her clinical progress. Her acid-base status/tachypnea/overall fatigue appears to have improved, initially her respiratory status worsened necessitating the echocardiogram and CT scan that were ordered. Formal read pending on echo, at the bedside, LV appeared to need to be hyperdynamic but overall reasonable EF, CT scan with rather diffuse basilar pneumonia. Initially worsened with oxygenation requiring escalation of nasal cannula up to oxygen mask, but she has been stable on 15 L oxygen mask for several hours now. Outside of the worsening oxygenation, each time I saw her she started to feel more and more comfortable, less tachypneic, less distress. Labs starting to show some improvement. Approximately 2 hours spent in her care throughout the day and this critical illness situation Admission and Anticipated Discharge Date Admission Date: November 18, 2021 History of Present Illness Chief Complaint: Week, nausea, abdominal pain, chest pain Primary Care Provider: Otoniel Regan Anderson Patient is a very pleasant 36-year-old female accompanied by her . She is quite ill whenever I see her, so while she is able to provide some of the history herself, a lot of it comes from . She had been in her usual seemingly good overall state of health until maybe a few days ago. During that time she started to have a lot of abdominal pain chest pain nausea vomiting and diarrhea. During that time she also got progressively weaker and her breathing sped up quite rapidly. Because she was looking quite severely ill today they decided come to the ER for further evaluation. On back story, she apparently had a chronic medical problem really only of thyroid disease, following with her PCP. He had noticed earlier this year her sugars being up a little, in discussion with him really prediabetic ranges at worst may be mid 100s, and back around April they discussed initiating Metformin versus lifestyle change. During that time she wanted to try lifestyle change, and he saw her back a few months later. During that time she still continued to feel okay, they get follow-up lab work, and she went on vacationthis was late Septemberher labs came back with a sugar greater than 300, an A1c of about 12. Because of her lack of symptoms, and the preceding appearance of insulin resistance type physiology, PCP started Metformin, and then quickly added Rybelsus. She was not well tolerate the Rybelsus due to GI side effects, so he had stopped that and doubled Metformin. Few days later, she started with the current symptom complex and presented to the ER for further evaluation. Allergies Allergy/AdvReac Type Severity Reaction Status Date / Time Sulfa (Sulfonamide Allergy Mild Hives Verified 11/18/21 07:24 Antibiotics) Home Medications Medication Instructions Recorded Confirmed Type doxycycline hyclate 100 mg capsule 100 mg PO DAILY 11/18/21 11/18/21 History levothyroxine 175 mcg tablet 175 mcg PO DAILY 11/18/21 11/18/21 History metformin 500 mg tablet 500 mg PO BID 11/18/21 11/18/21 History Past Med/Surg History Medical History Diabetes Hypothyroidism Surgical History H/O tubal ligation History of thyroidectomy Social History Smoking Status: Current every day smoker Preferred Language: Estonian marital status: Current Living Situation: Family current occupational status: unemployed Feels Safe at Home: Yes Review of Systems Review of Systems: All systems reviewed & are unremarkable except as noted in HPI & below Physical Exam Physical Exam: In general she is awake and alert pleasant but very ill very fatigued and very tachypneic. HEENT normocephalic atraumatic mucous membranes fairly dry. Cardio is regular but quite tachycardic no rubs murmurs or gallops. Lungs are a little bit of a difficult exam due to her weakness fatigue positioning tachypnea, but I think I hear right base rales, no rhonchi no wheezes good effort difficult to gauge accessory muscle use given her marked tachypnea. Abdomen is soft but she does have epigastric more than everywhere else diffuse tenderness without guarding rebound or rigidity. Extremities are without cyanosis clubbing or edema, although she is slightly mottled. Skin shows a slight mottling as above, no other rashes, pallor, icterus. Neuro shows cranial nerves II through XII be grossly intact gross motor and sensory are intact. Mental status shows good recent and remote recall normal mood and affect good judgment and insight. Musculoskeletal exam yields no gross abnormalities. Results & Data Results & Data ([facility]) Vital Signs (Past 12 Hours) Vital Signs Temp Pulse Pulse Resp BP BP Pulse Ox 11/18/21 14:00 128 H 38 H 143/84 H 91 11/18/21 13:00 146 H 42 H 132/76 90 11/18/21 12:00 144 H 36 H 140/98 93 11/18/21 11:00 143 H 32 H 149/86 H 93 11/18/21 09:11 131 H 30 H 151/105 H 97 11/18/21 06:57 98.6 F 145 H 20 115/74 99 Pulse Ox 11/18/21 14:00 90 11/18/21 13:00 11/18/21 12:00 11/18/21 11:00 11/18/21 09:11 11/18/21 06:57 Code Status & VTE Plan VTE Prophylaxis Plan VTE Prophylaxis will be ordered: Yes PG Care Time/CCT Total # of Minutes Spent Total Time Spent with Patient: Total time spent is greater than 50% in coordination of care (as documented) at patient's floor/unit and/or counseling patient: Coding Level of Care Code None Diagnoses DKA (diabetic ketoacidosis) E11.10 Diabetes E11.9 Hypothyroidism E03.9 Pneumonia J18.9 DVT prophylaxis Z29.9 Discharge planning issues Z02.9 Acute renal failure N17.9 Abdominal pain R10.9 Comment See critical care code instead
--- NOTE | 2021-11-18 18:04 | Billing Data ---
Date of Service November 18, 2021 Coding Level of Care Code Critical Care mins
[2021-11-18 18:20] LABS: BUN Creatinine Ratio 15.1 (10-20); Calcium 8.5 mg/dl (8.5-10.1); Est GFR (Non-African American) 67.3 ml/min; Magnesium 1.8 mg/dl (1.8-2.4); Potassium 3.3 mmol/L (3.5-5.1)
[2021-11-18] MEDS ORDERED: POTASSIUM PHOS 3 MMOL/1 ML INFUSION IV STA (18:37)
--- NOTE | 2021-11-18 18:57 | XCELERA ---
[id number]
[2021-11-18] MEDS ORDERED: POTASSIUM PHOSPHATE 9 MMOL in SODIUM CHLORIDE 0.9% 250 ML IV ONE (19:00)
[2021-11-18] MEDS ORDERED: AZITHROMYCIN 250 MG TAB PO STA (19:43)
[2021-11-18 22:09] LABS: BUN Creatinine Ratio 15.2 (10-20); Calcium 8.3 mg/dl (8.5-10.1); Creatinine Clr Calc Pharmacy 74.2 ml/min; Est GFR (African American) 80.8 ml/min; Est GFR (Non-African American) 69.7 ml/min; Magnesium 2.4 mg/dl (1.8-2.4); Potassium 3.6 mmol/L (3.5-5.1)
[2021-11-19] MEDS: D5W AND 1/2NSS + 20MEQ KCL 20 MEQ/1,000 ML BAG IV SCH ×5 (00:07→13:54)
[2021-11-19] MEDS: PENDING 1/2NSS+20mEq KCL IVF SCH ×2 (00:15→00:18)
[2021-11-19] MEDS: SODIUM CHLOR 0.45% + 20MEQ KCL 20 MEQ/1,000 ML BAG IV SCH ×2 (00:15→00:18)
[2021-11-19] MEDS ORDERED: guaiFENesin SUGAR FREE 100 MG/5 ML UDC PO STA (00:40)
[2021-11-19] MEDS ORDERED: LEVALBUTEROL HCL 0.63 MG/3 ML NEB NEB STA (00:41)
[2021-11-19 01:01] LABS: BUN Creatinine Ratio 16.1 (10-20); Calcium 8.1 mg/dl (8.5-10.1); Creatinine Clr Calc Pharmacy 83.1 ml/min; Est GFR (African American) 92.8 ml/min; Magnesium 2.1 mg/dl (1.8-2.4); Potassium 3.4 mmol/L (3.5-5.1)
[2021-11-19 01:25] LABS: Phosphorus 0.7 mg/dl (2.5-4.9)
[2021-11-19] MEDS ORDERED: POTASSIUM PHOS 3 MMOL/1 ML INFUSION IV STA (01:40)
[2021-11-19] MEDS ORDERED: POTASSIUM PHOSPHATE 30 MMOL in SODIUM CHLORIDE 0.9% 500 ML IV ONE (02:00)
[2021-11-19 06:00] LABS: BUN Creatinine Ratio 12.3 (10-20); Calcium 8.3 mg/dl (8.5-10.1); Creatinine Clr Calc Pharmacy 88.7 ml/min; Est GFR (African American) 96.6 ml/min; Est GFR (Non-African American) 83.3 ml/min; Magnesium 2.2 mg/dl (1.8-2.4); Potassium 3.5 mmol/L (3.5-5.1)
[2021-11-19] MEDS: LEVOTHYROXINE SODIUM 175 MCG TABLET PO SCH (06:29)
[2021-11-19 08:01] LABS: Phosphorus 1.9 mg/dl (2.5-4.9)
--- NOTE | 2021-11-19 08:22 | Electrocardiogram Report ---
Test Reason : Blood Pressure : / mmHG Vent. Rate : 143 BPM Atrial Rate : 143 BPM P-R Int : 172 ms QRS Dur : 078 ms QT Int : 374 ms P-R-T Axes : 090 118 078 degrees QTc Int : 577 ms Suspect arm lead reversal, interpretation assumes no reversal Sinus tachycardia Right axis deviation Cannot rule out Inferior infarct , age undetermined Poor R wave progression, consider anterior CO vs. lead placement vs. LVH Abnormal ECG No previous ECGs available Confirmed by William Simms ([id number]) on 11/19/2021 8:22:17 AM Referred By: REFERRED SELF Confirmed By:William Simms
[2021-11-19 08:24] LABS: Hematocrit (blood only) 39.9 % (37-47); Hemoglobin 13.8 g/dL (12.0-16.0); Mean Corpuscular Hemoglobin 30.5 pg (25-34); Mean Corpuscular Hgb Conc 34.6 g/dL (32-36); Mean Corpuscular Volume 88.3 fL (80-100); Mean Platelet Volume 10.3 fL (7.4-10.4); Platelet Count 277 K/uL (130-400); RDW Coefficient of Variation 13.5 % (11.5-14.5); RDW Standard Deviation 44.2 fL (36.4-46.3); Red Blood Count 4.52 M/uL (4.2-5.4); White Blood Count 15.09 K/uL (4.8-10.8)
[2021-11-19 08:34] LABS: BUN Creatinine Ratio 12.6 (10-20); Calcium 8.1 mg/dl (8.5-10.1); Creatinine Clr Calc Pharmacy 97.6 ml/min; Est GFR (African American) 108.4 ml/min; Est GFR (Non-African American) 93.5 ml/min; Potassium 3.7 mmol/L (3.5-5.1)
[2021-11-19 08:35] LABS: Phosphorus 2.1 mg/dl (2.5-4.9)
[2021-11-19 08:41] LABS: Basophils # (auto) 0.02 K/uL (0-0.2); Basophils % (auto) 0.1 %; Eosinophils # (auto) 0.01 K/uL (0-0.5); Eosinophils % (auto) 0.1 %; Immature Granulocytes # (auto) 0.08 K/uL (0.00-0.02); Immature Granulocytes % (auto) 0.5 %; Lymphocytes # (auto) 1.33 K/uL (1.2-3.4); Lymphocytes % (auto) 8.8 %; Monocytes # (auto) 0.98 K/uL (0.11-0.59); Monocytes % (auto) 6.5 %; Neutrophils # (auto) 12.67 K/uL (1.4-6.5); Platelet Estimate Normal (Normal); RBC Morphology Unremarkable
[2021-11-19] MEDS: INSULIN ASPART PER UNIT SC SCH ×5 (08:52→23:48)
[2021-11-19] MEDS: ENOXAPARIN INJ 40 MG/0.4 ML SYR SQ SCH (08:57)
[2021-11-19] MEDS ORDERED: guaiFENesin/CODEINE 100MG/10MG 5ML UDC PO PRN (09:14)
[2021-11-19] MEDS ORDERED: INSULIN GLARGINE SOLOSTAR 100 UNITS/ML 3 ML PEN SC ONE (10:15)
[2021-11-19] MEDS: INSULIN REGULAR 250 UNITS in SODIUM CHLORIDE 0.9% 247.5 ML IV SCH (10:40)
[2021-11-19] MEDS ORDERED: AZITHROMYCIN 250 MG in DEXTROSE 5% 250 ML IV SCH (12:00)
--- NOTE | 2021-11-19 12:44 | Hospitalist Progress Note ---
Date of Service November 19, 2021 Assessment & Plan (1) DKA (diabetic ketoacidosis): Plan: SEVERE. initial pH 6.96 initial bicarb level 5 MARKED improvement overnight with copious IV hydration & IV insulin. Gap closed now, pH has normalized. Transitioning off insulin drip soon. Uncertain if pneumonia led to DKA or if the N/V from DKA led to aspiration pneumonia. Either way treating both issues. Appreciate pharmacy assistance. Appreciate diabetes education assistance. Cont serial labs. Transitioning to basal-bolus insulin SC. Handout on DKA given. (2) Acute respiratory failure with hypoxia: Plan: 2nd to b/l pneumonia. Another COVID/RSV/flu was sent -- again negative. Suspect pneumonia is either aspiration vs community-acquired. She IS improving on rocephin/zithro. Cont both but increase rocephin to 2gm/day. Follow blood cx's. Pulmonary toilet. (3) Pneumonia: Plan: see #2 above (4) Diabetes: Plan: either she is a type 1 or "mix" type 1/type 2 see DKA above appreciate pharmacy/DM education assistance send anti-insulin ab, anti-JOMAR 65 ab, and islet cell ab transitioning off the insulin drip this afternoon serial labs (5) Hypothyroidism: Plan: Chronic, continue Synthroid TSH mildly low - needs repeating post-discharge (6) Acute renal failure: Plan: Peak Cr 1.5, now normalized. 2nd severe DKA and lactic acidosis/dehydration. (7) Abdominal pain: Plan: 2nd DKA resolved resume a diet - start w/ diabetic clears, advance as tolerated (8) DVT prophylaxis: Plan: Lovenox (9) Hypokalemia: Plan: replace IV/PO serial labs (10) Hypophosphatemia: Plan: kphos neutral qid phos level am Plan: PT consult tomorrow Admission and Anticipated Discharge Date Admission Date: November 18, 2021 Subjective tele overnight wnl pt states that nausea/emesis are resolved she continues on oxymask does have significant fatigue and mild dyspnea with getting up and moving around coughing states she and her family had traveled to [place] the previous week within 48 hours of returning to [place] she was ill no one in her family is sick unvaccinated against COVID denies obvious COVID exposure no loss of taste/smell we had lengthy discussion about her diabetes and needing insulin at home upon d/c Review of Systems Review of Systems: gen - no fevers or chills - just very weak CV - no pleuritic pain pulm - cough, congestion, dyspneic GI - no abd pain, nausea, emesis Physical Exam Physical Exam: gen - looks sick, but awake/alert; coughing occasionally mouth - MM slightly dry neck - no JVD heart - RRR, s1 s2 lungs - extensive b/l basilar rales, occasional wheeze abd - soft NT ND BS+ ext - no edema, pulses 2+ b/l skin - no rash psych - a/o x 3 Results & Data Results & Data ([facility]) Vital Signs (Past 12 Hours) Vital Signs Temp Pulse Pulse Resp BP Pulse Ox 11/19/21 11:51 36.9 C 87 18 111/69 98 11/19/21 07:56 37.1 C 101 H 18 115/76 95 11/19/21 07:34 96 H 11/19/21 02:57 37.4 C 101 H 17 106/68 96 11/19/21 02:42 105 H 30 H 95 Laboratory Results Laboratory Results - last 24 hr 11/18/21 11/19/21 11/19/21 23:39 00:25 00:33 WBC RBC Hgb Hct MCV MCH MCHC RDW Std Deviation RDW Coeff of Malena Plt Count MPV Immature Gran % (Auto) Neut % (Auto) Lymph % (Auto) [place] % (Auto) Eos % (Auto) Baso % (Auto) Neut # (Auto) Lymph # (Auto) [place] # (Auto) Eos # (Auto) Baso # (Auto) Immature Gran # (Auto) Absolute Nucleated RBC Nucleated RBC % (auto) Neutrophils % (Manual) Band Neutrophils % Lymphocytes % (Manual) Prolymphocyte % Reactive Lymphs % (Man) Monocytes % (Manual) Eosinophils % (Manual) Basophils % (Manual) Metamyelocytes % (Man) Myelocytes % (Man) Promyelocytes % (Man) Blast Cells % (Manual) Plasma Cell % (Manual) Other Cells % Nucleated RBC % Neutrophils # (Manual) Band Neutrophils # Total Absolute Neuts Lymphocytes # (Manual) Prolymphocyte # Reactive Lymphs # Total Abs Lymphocytes Monocytes # (Manual) Eosinophils # (Manual) Basophils # (Manual) Metamyelocytes # (Man) Myelocytes # (Manual) Promyelocytes # (Man) Blast Cells # (Man) Plasma Cell # (Manual) Other Cells # Nucleated RBCs # (Man) Hypersegmented Neuts Hyposegmented Neuts Hypogranular Neuts Large Granular Lymphs # Lrg Granular Lymphs Hairy Cells Smudge Cells Toxic Granulation Toxic Vacuolation Dohle Bodies Kimberlyn Rods Platelet Estimate Hypogranular Platelets Clumped Platelets Giant Platelets Platelet Satelliting RBC Morphology Polychromasia Hypochromasia Poikilocytosis Basophilic Stippling Anisocytosis Microcytosis Macrocytosis Spherocytes Pappenheimer Bodies Sickle Cells Target Cells Tear Drop Cells Ovalocytes Stomatocytes [place] Bodies Echinocytes Acanthocytes (Spur) Rouleaux RBC Agglutinates Schistocytes RBC Morph Comment Sezary Cell VBG pH 7.33 L Sodium 144 Potassium 3.4 L Chloride 122 H Carbon Dioxide 12 L Anion Gap 10.0 BUN 15 Creatinine 0.91 Est Cr Clr Drug Dosing 83.1 Est GFR ( Amer) 92.8 Est GFR (Non-Af Amer) 80.0 BUN/Creatinine Ratio 16.1 Glucose 154 H POC Glucose 130 H Calcium 8.1 L Phosphorus 0.7 L* Magnesium 2.1 C-Reactive Protein Procalcitonin Specimen Hemolysis SARS-CoV-2 (PCR) Influenza Type A (PCR) Influenza Type B (PCR) RSV (RT-PCR) 11/19/21 11/19/21 11/19/21 00:40 01:37 03:49 WBC RBC Hgb Hct MCV MCH MCHC RDW Std Deviation RDW Coeff of Malena Plt Count MPV Immature Gran % (Auto) Neut % (Auto) Lymph % (Auto) [place] % (Auto) Eos % (Auto) Baso % (Auto) Neut # (Auto) Lymph # (Auto) [place] # (Auto) Eos # (Auto) Baso # (Auto) Immature Gran # (Auto) Absolute Nucleated RBC Nucleated RBC % (auto) Neutrophils % (Manual) Band Neutrophils % Lymphocytes % (Manual) Prolymphocyte % Reactive Lymphs % (Man) Monocytes % (Manual) Eosinophils % (Manual) Basophils % (Manual) Metamyelocytes % (Man) Myelocytes % (Man) Promyelocytes % (Man) Blast Cells % (Manual) Plasma Cell % (Manual) Other Cells % Nucleated RBC % Neutrophils # (Manual) Band Neutrophils # Total Absolute Neuts Lymphocytes # (Manual) Prolymphocyte # Reactive Lymphs # Total Abs Lymphocytes Monocytes # (Manual) Eosinophils # (Manual) Basophils # (Manual) Metamyelocytes # (Man) Myelocytes # (Manual) Promyelocytes # (Man) Blast Cells # (Man) Plasma Cell # (Manual) Other Cells # Nucleated RBCs # (Man) Hypersegmented Neuts Hyposegmented Neuts Hypogranular Neuts Large Granular Lymphs # Lrg Granular Lymphs Hairy Cells Smudge Cells Toxic Granulation Toxic Vacuolation Dohle Bodies Kimberlyn Rods Platelet Estimate Hypogranular Platelets Clumped Platelets Giant Platelets Platelet Satelliting RBC Morphology Polychromasia Hypochromasia Poikilocytosis Basophilic Stippling Anisocytosis Microcytosis Macrocytosis Spherocytes Pappenheimer Bodies Sickle Cells Target Cells Tear Drop Cells Ovalocytes Stomatocytes [place] Bodies Echinocytes Acanthocytes (Spur) Rouleaux RBC Agglutinates Schistocytes RBC Morph Comment Sezary Cell VBG pH Sodium Potassium Chloride Carbon Dioxide Anion Gap BUN Creatinine Est Cr Clr Drug Dosing Est GFR ( Amer) Est GFR (Non-Af Amer) BUN/Creatinine Ratio Glucose POC Glucose 149 H 178 H 243 H Calcium Phosphorus Magnesium C-Reactive Protein Procalcitonin Specimen Hemolysis SARS-CoV-2 (PCR) Influenza Type A (PCR) Influenza Type B (PCR) RSV (RT-PCR) 11/19/21 11/19/21 11/19/21 04:58 05:30 05:30 WBC RBC Hgb Hct MCV MCH MCHC RDW Std Deviation RDW Coeff of Malena Plt Count MPV Immature Gran % (Auto) Neut % (Auto) Lymph % (Auto) [place] % (Auto) Eos % (Auto) Baso % (Auto) Neut # (Auto) Lymph # (Auto) [place] # (Auto) Eos # (Auto) Baso # (Auto) Immature Gran # (Auto) Absolute Nucleated RBC Nucleated RBC % (auto) Neutrophils % (Manual) Band Neutrophils % Lymphocytes % (Manual) Prolymphocyte % Reactive Lymphs % (Man) Monocytes % (Manual) Eosinophils % (Manual) Basophils % (Manual) Metamyelocytes % (Man) Myelocytes % (Man) Promyelocytes % (Man) Blast Cells % (Manual) Plasma Cell % (Manual) Other Cells % Nucleated RBC % Neutrophils # (Manual) Band Neutrophils # Total Absolute Neuts Lymphocytes # (Manual) Prolymphocyte # Reactive Lymphs # Total Abs Lymphocytes Monocytes # (Manual) Eosinophils # (Manual) Basophils # (Manual) Metamyelocytes # (Man) Myelocytes # (Manual) Promyelocytes # (Man) Blast Cells # (Man) Plasma Cell # (Manual) Other Cells # Nucleated RBCs # (Man) Hypersegmented Neuts Hyposegmented Neuts Hypogranular Neuts Large Granular Lymphs # Lrg Granular Lymphs Hairy Cells Smudge Cells Toxic Granulation Toxic Vacuolation Dohle Bodies Kimberlyn Rods Platelet Estimate Hypogranular Platelets Clumped Platelets Giant Platelets Platelet Satelliting RBC Morphology Polychromasia Hypochromasia Poikilocytosis Basophilic Stippling Anisocytosis Microcytosis Macrocytosis Spherocytes Pappenheimer Bodies Sickle Cells Target Cells Tear Drop Cells Ovalocytes Stomatocytes [place] Bodies Echinocytes Acanthocytes (Spur) Rouleaux RBC Agglutinates Schistocytes RBC Morph Comment Sezary Cell VBG pH 7.33 L Sodium 141 Potassium 3.5 Chloride 120 H Carbon Dioxide 13 L Anion Gap 8.0 BUN 11 Creatinine 0.88 Est Cr Clr Drug Dosing 88.7 Est GFR ( Amer) 96.6 Est GFR (Non-Af Amer) 83.3 BUN/Creatinine Ratio 12.3 Glucose 228 H POC Glucose 202 H Calcium 8.3 L Phosphorus 1.9 L D Magnesium 2.2 C-Reactive Protein Procalcitonin Specimen Hemolysis SARS-CoV-2 (PCR) Influenza Type A (PCR) Influenza Type B (PCR) RSV (RT-PCR) 11/19/21 11/19/21 11/19/21 05:30 05:57 06:00 WBC Cancelled Cancelled RBC Cancelled Cancelled Hgb Cancelled Cancelled Hct Cancelled Cancelled MCV Cancelled Cancelled MCH Cancelled Cancelled MCHC Cancelled Cancelled RDW Std Deviation Cancelled Cancelled RDW Coeff of Malena Cancelled Cancelled Plt Count Cancelled Cancelled MPV Cancelled Cancelled Immature Gran % (Auto) Cancelled Cancelled Neut % (Auto) Cancelled Cancelled Lymph % (Auto) Cancelled Cancelled [place] % (Auto) Cancelled Cancelled Eos % (Auto) Cancelled Cancelled Baso % (Auto) Cancelled Cancelled Neut # (Auto) Cancelled Cancelled Lymph # (Auto) Cancelled Cancelled [place] # (Auto) Cancelled Cancelled Eos # (Auto) Cancelled Cancelled Baso # (Auto) Cancelled Cancelled Immature Gran # (Auto) Cancelled Cancelled Absolute Nucleated RBC Cancelled Cancelled Nucleated RBC % (auto) Cancelled Cancelled Neutrophils % (Manual) Cancelled Cancelled Band Neutrophils % Cancelled Cancelled Lymphocytes % (Manual) Cancelled Cancelled Prolymphocyte % Cancelled Cancelled Reactive Lymphs % (Man) Cancelled Cancelled Monocytes % (Manual) Cancelled Cancelled Eosinophils % (Manual) Cancelled Cancelled Basophils % (Manual) Cancelled Cancelled Metamyelocytes % (Man) Cancelled Cancelled Myelocytes % (Man) Cancelled Cancelled Promyelocytes % (Man) Cancelled Cancelled Blast Cells % (Manual) Cancelled Cancelled Plasma Cell % (Manual) Cancelled Cancelled Other Cells % Cancelled Cancelled Nucleated RBC % Cancelled Cancelled Neutrophils # (Manual) Cancelled Cancelled Band Neutrophils # Cancelled Cancelled Total Absolute Neuts Cancelled Cancelled Lymphocytes # (Manual) Cancelled Cancelled Prolymphocyte # Cancelled Cancelled Reactive Lymphs # Cancelled Cancelled Total Abs Lymphocytes Cancelled Cancelled Monocytes # (Manual) Cancelled Cancelled Eosinophils # (Manual) Cancelled Cancelled Basophils # (Manual) Cancelled Cancelled Metamyelocytes # (Man) Cancelled Cancelled Myelocytes # (Manual) Cancelled Cancelled Promyelocytes # (Man) Cancelled Cancelled Blast Cells # (Man) Cancelled Cancelled Plasma Cell # (Manual) Cancelled Cancelled Other Cells # Cancelled Cancelled Nucleated RBCs # (Man) Cancelled Cancelled Hypersegmented Neuts Cancelled Cancelled Hyposegmented Neuts Cancelled Cancelled Hypogranular Neuts Cancelled Cancelled Large Granular Lymphs Cancelled Cancelled # Lrg Granular Lymphs Cancelled Cancelled Hairy Cells Cancelled Cancelled Smudge Cells Cancelled Cancelled Toxic Granulation Cancelled Cancelled Toxic Vacuolation Cancelled Cancelled Dohle Bodies Cancelled Cancelled Kimberlyn Rods Cancelled Cancelled Platelet Estimate Cancelled Cancelled Hypogranular Platelets Cancelled Cancelled Clumped Platelets Cancelled Cancelled Giant Platelets Cancelled Cancelled Platelet Satelliting Cancelled Cancelled RBC Morphology Cancelled Cancelled Polychromasia Cancelled Cancelled Hypochromasia Cancelled Cancelled Poikilocytosis Cancelled Cancelled Basophilic Stippling Cancelled Cancelled Anisocytosis Cancelled Cancelled Microcytosis Cancelled Cancelled Macrocytosis Cancelled Cancelled Spherocytes Cancelled Cancelled Pappenheimer Bodies Cancelled Cancelled Sickle Cells Cancelled Cancelled Target Cells Cancelled Cancelled Tear Drop Cells Cancelled Cancelled Ovalocytes Cancelled Cancelled Stomatocytes Cancelled Cancelled [place] Bodies Cancelled Cancelled Echinocytes Cancelled Cancelled Acanthocytes (Spur) Cancelled Cancelled Rouleaux Cancelled Cancelled RBC Agglutinates Cancelled Cancelled Schistocytes Cancelled Cancelled RBC Morph Comment Cancelled Cancelled Sezary Cell Cancelled Cancelled VBG pH Sodium Potassium Chloride Carbon Dioxide Anion Gap BUN Creatinine Est Cr Clr Drug Dosing Est GFR ( Amer) Est GFR (Non-Af Amer) BUN/Creatinine Ratio Glucose POC Glucose 216 H Calcium Phosphorus Magnesium C-Reactive Protein Procalcitonin Specimen Hemolysis SARS-CoV-2 (PCR) Influenza Type A (PCR) Influenza Type B (PCR) RSV (RT-PCR) 11/19/21 11/19/21 11/19/21 06:59 08:11 08:11 WBC RBC Hgb Hct MCV MCH MCHC RDW Std Deviation RDW Coeff of Malena Plt Count MPV Immature Gran % (Auto) Neut % (Auto) Lymph % (Auto) [place] % (Auto) Eos % (Auto) Baso % (Auto) Neut # (Auto) Lymph # (Auto) [place] # (Auto) Eos # (Auto) Baso # (Auto) Immature Gran # (Auto) Absolute Nucleated RBC Nucleated RBC % (auto) Neutrophils % (Manual) Band Neutrophils % Lymphocytes % (Manual) Prolymphocyte % Reactive Lymphs % (Man) Monocytes % (Manual) Eosinophils % (Manual) Basophils % (Manual) Metamyelocytes % (Man) Myelocytes % (Man) Promyelocytes % (Man) Blast Cells % (Manual) Plasma Cell % (Manual) Other Cells % Nucleated RBC % Neutrophils # (Manual) Band Neutrophils # Total Absolute Neuts Lymphocytes # (Manual) Prolymphocyte # Reactive Lymphs # Total Abs Lymphocytes Monocytes # (Manual) Eosinophils # (Manual) Basophils # (Manual) Metamyelocytes # (Man) Myelocytes # (Manual) Promyelocytes # (Man) Blast Cells # (Man) Plasma Cell # (Manual) Other Cells # Nucleated RBCs # (Man) Hypersegmented Neuts Hyposegmented Neuts Hypogranular Neuts Large Granular Lymphs # Lrg Granular Lymphs Hairy Cells Smudge Cells Toxic Granulation Toxic Vacuolation Dohle Bodies Kimberlyn Rods Platelet Estimate Hypogranular Platelets Clumped Platelets Giant Platelets Platelet Satelliting RBC Morphology Polychromasia Hypochromasia Poikilocytosis Basophilic Stippling Anisocytosis Microcytosis Macrocytosis Spherocytes Pappenheimer Bodies Sickle Cells Target Cells Tear Drop Cells Ovalocytes Stomatocytes [place] Bodies Echinocytes Acanthocytes (Spur) Rouleaux RBC Agglutinates Schistocytes RBC Morph Comment Sezary Cell VBG pH 7.31 L Sodium 143 Potassium 3.7 Chloride 121 H Carbon Dioxide 14 L Anion Gap 8.0 BUN 10 Creatinine 0.80 Est Cr Clr Drug Dosing 97.6 Est GFR ( Amer) 108.4 Est GFR (Non-Af Amer) 93.5 BUN/Creatinine Ratio 12.6 Glucose 224 H POC Glucose 200 H Calcium 8.1 L Phosphorus 2.1 L Magnesium 2.0 C-Reactive Protein Procalcitonin Specimen Hemolysis SARS-CoV-2 (PCR) Influenza Type A (PCR) Influenza Type B (PCR) RSV (RT-PCR) 11/19/21 11/19/21 11/19/21 08:11 08:18 08:58 WBC 15.09 H D RBC 4.52 Hgb 13.8 D Hct 39.9 MCV 88.3 D MCH 30.5 MCHC 34.6 RDW Std Deviation 44.2 RDW Coeff of Malena 13.5 Plt Count 277 D MPV 10.3 Immature Gran % (Auto) 0.5 Neut % (Auto) 84.0 Lymph % (Auto) 8.8 [place] % (Auto) 6.5 Eos % (Auto) 0.1 Baso % (Auto) 0.1 Neut # (Auto) 12.67 H Lymph # (Auto) 1.33 [place] # (Auto) 0.98 H Eos # (Auto) 0.01 Baso # (Auto) 0.02 Immature Gran # (Auto) 0.08 H Absolute Nucleated RBC Nucleated RBC % (auto) Neutrophils % (Manual) Band Neutrophils % Lymphocytes % (Manual) Prolymphocyte % Reactive Lymphs % (Man) Monocytes % (Manual) Eosinophils % (Manual) Basophils % (Manual) Metamyelocytes % (Man) Myelocytes % (Man) Promyelocytes % (Man) Blast Cells % (Manual) Plasma Cell % (Manual) Other Cells % Nucleated RBC % Neutrophils # (Manual) Band Neutrophils # Total Absolute Neuts Lymphocytes # (Manual) Prolymphocyte # Reactive Lymphs # Total Abs Lymphocytes Monocytes # (Manual) Eosinophils # (Manual) Basophils # (Manual) Metamyelocytes # (Man) Myelocytes # (Manual) Promyelocytes # (Man) Blast Cells # (Man) Plasma Cell # (Manual) Other Cells # Nucleated RBCs # (Man) Hypersegmented Neuts Hyposegmented Neuts Hypogranular Neuts Large Granular Lymphs # Lrg Granular Lymphs Hairy Cells Smudge Cells Toxic Granulation Toxic Vacuolation Dohle Bodies Kimberlyn Rods Platelet Estimate Normal Hypogranular Platelets Clumped Platelets Giant Platelets Platelet Satelliting RBC Morphology Unremarkable Polychromasia Hypochromasia Poikilocytosis Basophilic Stippling Anisocytosis Microcytosis Macrocytosis Spherocytes Pappenheimer Bodies Sickle Cells Target Cells Tear Drop Cells Ovalocytes Stomatocytes [place] Bodies Echinocytes Acanthocytes (Spur) Rouleaux RBC Agglutinates Schistocytes RBC Morph Comment Sezary Cell VBG pH Sodium Potassium Chloride Carbon Dioxide Anion Gap BUN Creatinine Est Cr Clr Drug Dosing Est GFR ( Amer) Est GFR (Non-Af Amer) BUN/Creatinine Ratio Glucose POC Glucose 198 H 164 H Calcium Phosphorus Magnesium C-Reactive Protein Procalcitonin Specimen Hemolysis SARS-CoV-2 (PCR) Influenza Type A (PCR) Influenza Type B (PCR) RSV (RT-PCR) 11/19/21 11/19/21 11/19/21 10:02 11:03 12:00 WBC RBC Hgb Hct MCV MCH MCHC RDW Std Deviation RDW Coeff of Malena Plt Count MPV Immature Gran % (Auto) Neut % (Auto) Lymph % (Auto) [place] % (Auto) Eos % (Auto) Baso % (Auto) Neut # (Auto) Lymph # (Auto) [place] # (Auto) Eos # (Auto) Baso # (Auto) Immature Gran # (Auto) Absolute Nucleated RBC Nucleated RBC % (auto) Neutrophils % (Manual) Band Neutrophils % Lymphocytes % (Manual) Prolymphocyte % Reactive Lymphs % (Man) Monocytes % (Manual) Eosinophils % (Manual) Basophils % (Manual) Metamyelocytes % (Man) Myelocytes % (Man) Promyelocytes % (Man) Blast Cells % (Manual) Plasma Cell % (Manual) Other Cells % Nucleated RBC % Neutrophils # (Manual) Band Neutrophils # Total Absolute Neuts Lymphocytes # (Manual) Prolymphocyte # Reactive Lymphs # Total Abs Lymphocytes Monocytes # (Manual) Eosinophils # (Manual) Basophils # (Manual) Metamyelocytes # (Man) Myelocytes # (Manual) Promyelocytes # (Man) Blast Cells # (Man) Plasma Cell # (Manual) Other Cells # Nucleated RBCs # (Man) Hypersegmented Neuts Hyposegmented Neuts Hypogranular Neuts Large Granular Lymphs # Lrg Granular Lymphs Hairy Cells Smudge Cells Toxic Granulation Toxic Vacuolation Dohle Bodies Kimberlyn Rods Platelet Estimate Hypogranular Platelets Clumped Platelets Giant Platelets Platelet Satelliting RBC Morphology Polychromasia Hypochromasia Poikilocytosis Basophilic Stippling Anisocytosis Microcytosis Macrocytosis Spherocytes Pappenheimer Bodies Sickle Cells Target Cells Tear Drop Cells Ovalocytes Stomatocytes [place] Bodies Echinocytes Acanthocytes (Spur) Rouleaux RBC Agglutinates Schistocytes RBC Morph Comment Sezary Cell VBG pH Sodium Potassium Chloride Carbon Dioxide Anion Gap BUN Creatinine Est Cr Clr Drug Dosing Est GFR ( Amer) Est GFR (Non-Af Amer) BUN/Creatinine Ratio Glucose POC Glucose 141 H 172 H 132 H Calcium Phosphorus Magnesium C-Reactive Protein Procalcitonin Specimen Hemolysis SARS-CoV-2 (PCR) Influenza Type A (PCR) Influenza Type B (PCR) RSV (RT-PCR) 11/19/21 11/19/21 11/19/21 13:02 13:43 13:43 WBC RBC Hgb Hct MCV MCH MCHC RDW Std Deviation RDW Coeff of Malena Plt Count MPV Immature Gran % (Auto) Neut % (Auto) Lymph % (Auto) [place] % (Auto) Eos % (Auto) Baso % (Auto) Neut # (Auto) Lymph # (Auto) [place] # (Auto) Eos # (Auto) Baso # (Auto) Immature Gran # (Auto) Absolute Nucleated RBC Nucleated RBC % (auto) Neutrophils % (Manual) Band Neutrophils % Lymphocytes % (Manual) Prolymphocyte % Reactive Lymphs % (Man) Monocytes % (Manual) Eosinophils % (Manual) Basophils % (Manual) Metamyelocytes % (Man) Myelocytes % (Man) Promyelocytes % (Man) Blast Cells % (Manual) Plasma Cell % (Manual) Other Cells % Nucleated RBC % Neutrophils # (Manual) Band Neutrophils # Total Absolute Neuts Lymphocytes # (Manual) Prolymphocyte # Reactive Lymphs # Total Abs Lymphocytes Monocytes # (Manual) Eosinophils # (Manual) Basophils # (Manual) Metamyelocytes # (Man) Myelocytes # (Manual) Promyelocytes # (Man) Blast Cells # (Man) Plasma Cell # (Manual) Other Cells # Nucleated RBCs # (Man) Hypersegmented Neuts Hyposegmented Neuts Hypogranular Neuts Large Granular Lymphs # Lrg Granular Lymphs Hairy Cells Smudge Cells Toxic Granulation Toxic Vacuolation Dohle Bodies Kimberlyn Rods Platelet Estimate Hypogranular Platelets Clumped Platelets Giant Platelets Platelet Satelliting RBC Morphology Polychromasia Hypochromasia Poikilocytosis Basophilic Stippling Anisocytosis Microcytosis Macrocytosis Spherocytes Pappenheimer Bodies Sickle Cells Target Cells Tear Drop Cells Ovalocytes Stomatocytes [place] Bodies Echinocytes Acanthocytes (Spur) Rouleaux RBC Agglutinates Schistocytes RBC Morph Comment Sezary Cell VBG pH Sodium 143 Potassium 3.1 L D Chloride 118 H Carbon Dioxide 15 L Anion Gap 10.0 BUN 7 Creatinine 0.81 Est Cr Clr Drug Dosing 96.4 Est GFR ( Amer) 106.8 Est GFR (Non-Af Amer) 92.1 BUN/Creatinine Ratio 8.9 L Glucose 114 H POC Glucose 106 H Calcium 8.8 Phosphorus Magnesium C-Reactive Protein 14.20 H Procalcitonin 3.70 H Specimen Hemolysis SARS-CoV-2 (PCR) Influenza Type A (PCR) Influenza Type B (PCR) RSV (RT-PCR) 11/19/21 11/19/21 11/19/21 13:43 13:58 15:05 WBC RBC Hgb Hct MCV MCH MCHC RDW Std Deviation RDW Coeff of Malena Plt Count MPV Immature Gran % (Auto) Neut % (Auto) Lymph % (Auto) [place] % (Auto) Eos % (Auto) Baso % (Auto) Neut # (Auto) Lymph # (Auto) [place] # (Auto) Eos # (Auto) Baso # (Auto) Immature Gran # (Auto) Absolute Nucleated RBC Nucleated RBC % (auto) Neutrophils % (Manual) Band Neutrophils % Lymphocytes % (Manual) Prolymphocyte % Reactive Lymphs % (Man) Monocytes % (Manual) Eosinophils % (Manual) Basophils % (Manual) Metamyelocytes % (Man) Myelocytes % (Man) Promyelocytes % (Man) Blast Cells % (Manual) Plasma Cell % (Manual) Other Cells % Nucleated RBC % Neutrophils # (Manual) Band Neutrophils # Total Absolute Neuts Lymphocytes # (Manual) Prolymphocyte # Reactive Lymphs # Total Abs Lymphocytes Monocytes # (Manual) Eosinophils # (Manual) Basophils # (Manual) Metamyelocytes # (Man) Myelocytes # (Manual) Promyelocytes # (Man) Blast Cells # (Man) Plasma Cell # (Manual) Other Cells # Nucleated RBCs # (Man) Hypersegmented Neuts Hyposegmented Neuts Hypogranular Neuts Large Granular Lymphs # Lrg Granular Lymphs Hairy Cells Smudge Cells Toxic Granulation Toxic Vacuolation Dohle Bodies Kimberlyn Rods Platelet Estimate Hypogranular Platelets Clumped Platelets Giant Platelets Platelet Satelliting RBC Morphology Polychromasia Hypochromasia Poikilocytosis Basophilic Stippling Anisocytosis Microcytosis Macrocytosis Spherocytes Pappenheimer Bodies Sickle Cells Target Cells Tear Drop Cells Ovalocytes Stomatocytes [place] Bodies Echinocytes Acanthocytes (Spur) Rouleaux RBC Agglutinates Schistocytes RBC Morph Comment Sezary Cell VBG pH 7.36 Sodium Potassium Chloride Carbon Dioxide Anion Gap BUN Creatinine Est Cr Clr Drug Dosing Est GFR ( Amer) Est GFR (Non-Af Amer) BUN/Creatinine Ratio Glucose POC Glucose 139 H 118 H Calcium Phosphorus Magnesium C-Reactive Protein Procalcitonin Specimen Hemolysis SARS-CoV-2 (PCR) Influenza Type A (PCR) Influenza Type B (PCR) RSV (RT-PCR) 11/19/21 11/19/21 11/19/21 16:02 16:03 18:12 WBC RBC Hgb Hct MCV MCH MCHC RDW Std Deviation RDW Coeff of Malena Plt Count MPV Immature Gran % (Auto) Neut % (Auto) Lymph % (Auto) [place] % (Auto) Eos % (Auto) Baso % (Auto) Neut # (Auto) Lymph # (Auto) [place] # (Auto) Eos # (Auto) Baso # (Auto) Immature Gran # (Auto) Absolute Nucleated RBC Nucleated RBC % (auto) Neutrophils % (Manual) Band Neutrophils % Lymphocytes % (Manual) Prolymphocyte % Reactive Lymphs % (Man) Monocytes % (Manual) Eosinophils % (Manual) Basophils % (Manual) Metamyelocytes % (Man) Myelocytes % (Man) Promyelocytes % (Man) Blast Cells % (Manual) Plasma Cell % (Manual) Other Cells % Nucleated RBC % Neutrophils # (Manual) Band Neutrophils # Total Absolute Neuts Lymphocytes # (Manual) Prolymphocyte # Reactive Lymphs # Total Abs Lymphocytes Monocytes # (Manual) Eosinophils # (Manual) Basophils # (Manual) Metamyelocytes # (Man) Myelocytes # (Manual) Promyelocytes # (Man) Blast Cells # (Man) Plasma Cell # (Manual) Other Cells # Nucleated RBCs # (Man) Hypersegmented Neuts Hyposegmented Neuts Hypogranular Neuts Large Granular Lymphs # Lrg Granular Lymphs Hairy Cells Smudge Cells Toxic Granulation Toxic Vacuolation Dohle Bodies Kimberlyn Rods Platelet Estimate Hypogranular Platelets Clumped Platelets Giant Platelets Platelet Satelliting RBC Morphology Polychromasia Hypochromasia Poikilocytosis Basophilic Stippling Anisocytosis Microcytosis Macrocytosis Spherocytes Pappenheimer Bodies Sickle Cells Target Cells Tear Drop Cells Ovalocytes Stomatocytes [place] Bodies Echinocytes Acanthocytes (Spur) Rouleaux RBC Agglutinates Schistocytes RBC Morph Comment [place] Cell VBG pH Sodium Potassium Chloride Carbon Dioxide Anion Gap BUN Creatinine Est Cr Clr Drug Dosing Est GFR ( Amer) Est GFR (Non-Af Amer) BUN/Creatinine Ratio Glucose POC Glucose 68 L* 71 135 H Calcium Phosphorus Magnesium C-Reactive Protein Procalcitonin Specimen Hemolysis SARS-CoV-2 (PCR) Influenza Type A (PCR) Influenza Type B (PCR) RSV (RT-PCR) 11/19/21 11/19/21 20:44 Unknown WBC RBC Hgb Hct MCV MCH MCHC RDW Std Deviation RDW Coeff of Malena Plt Count MPV Immature Gran % (Auto) Neut % (Auto) Lymph % (Auto) [place] % (Auto) Eos % (Auto) Baso % (Auto) Neut # (Auto) Lymph # (Auto) [place] # (Auto) Eos # (Auto) Baso # (Auto) Immature Gran # (Auto) Absolute Nucleated RBC Nucleated RBC % (auto) Neutrophils % (Manual) Band Neutrophils % Lymphocytes % (Manual) Prolymphocyte % Reactive Lymphs % (Man) Monocytes % (Manual) Eosinophils % (Manual) Basophils % (Manual) Metamyelocytes % (Man) Myelocytes % (Man) Promyelocytes % (Man) Blast Cells % (Manual) Plasma Cell % (Manual) Other Cells % Nucleated RBC % Neutrophils # (Manual) Band Neutrophils # Total Absolute Neuts Lymphocytes # (Manual) Prolymphocyte # Reactive Lymphs # Total Abs Lymphocytes Monocytes # (Manual) Eosinophils # (Manual) Basophils # (Manual) Metamyelocytes # (Man) Myelocytes # (Manual) Promyelocytes # (Man) Blast Cells # (Man) Plasma Cell # (Manual) Other Cells # Nucleated RBCs # (Man) Hypersegmented Neuts Hyposegmented Neuts Hypogranular Neuts Large Granular Lymphs # Lrg Granular Lymphs Hairy Cells Smudge Cells Toxic Granulation Toxic Vacuolation Dohle Bodies Kimberlyn Rods Platelet Estimate Hypogranular Platelets Clumped Platelets Giant Platelets Platelet Satelliting RBC Morphology Polychromasia Hypochromasia Poikilocytosis Basophilic Stippling Anisocytosis Microcytosis Macrocytosis Spherocytes Pappenheimer Bodies Sickle Cells Target Cells Tear Drop Cells Ovalocytes Stomatocytes [place] Bodies Echinocytes Acanthocytes (Spur) Rouleaux RBC Agglutinates Schistocytes RBC Morph Comment [place] Cell VBG pH Sodium Potassium Chloride Carbon Dioxide Anion Gap BUN Creatinine Est Cr Clr Drug Dosing Est GFR ( Amer) Est GFR (Non-Af Amer) BUN/Creatinine Ratio Glucose POC Glucose 80 Calcium Phosphorus Magnesium C-Reactive Protein Procalcitonin Specimen Hemolysis SARS-CoV-2 (PCR) NEGATIVE Influenza Type A (PCR) Negative Influenza Type B (PCR) Negative RSV (RT-PCR) Negative PG Care Time/CCT Total # of Minutes Spent Total Time Spent with Patient: Total time spent is greater than 50% in coordination of care (as documented) at patient's floor/unit and/or counseling patient: Coding Level of Care Code 35721 Subseq Hosp Care Lvl 3 Diagnoses DKA (diabetic ketoacidosis) E11.10 Diabetes E11.9 Hypothyroidism E03.9 Acute renal failure N17.9 Abdominal pain R10.9 Pneumonia J18.9 DVT prophylaxis Z29.9 Acute respiratory failure with hypoxia J96.01 Hypokalemia E87.6 Hypophosphatemia E83.39
[2021-11-19] MEDS: AZITHROMYCIN 250 MG TAB PO SCH (13:52)
[2021-11-19] MEDS: cefTRIAXone SODIUM 2,000 MG in DEXTROSE 5% 50 ML IV SCH (13:54)
[2021-11-19 14:11] LABS: BUN Creatinine Ratio 8.9 (10-20); C Reactive Protein 14.2 mg/dl (0-0.29); Calcium 8.8 mg/dl (8.5-10.1); Creatinine Clr Calc Pharmacy 96.4 ml/min; Est GFR (African American) 106.8 ml/min; Est GFR (Non-African American) 92.1 ml/min; Potassium 3.1 mmol/L (3.5-5.1)
[2021-11-19 14:23] LABS: Influenza A virus by PCR Negative (Neg); Influenza B virus by PCR Negative (Neg); RSV by PCR Negative (Neg); SARS CoV2 RNA(COVID-19) InHosp NEGATIVE (Negative)
--- NOTE | 2021-11-19 15:11 | Pharmacy Report ---
Pharmacy Glycemic Short Note 2 - Date of Service November 19, 2021 - Glycemic Short BSG Results (Last 24 hours): 11/18/21 11/18/21 11/18/21 15:29 16:42 17:29 Glucose 276 H POC Glucose 297 H 250 H 11/18/21 11/18/21 11/18/21 18:53 21:10 21:28 Glucose 172 H POC Glucose 194 H 189 H 11/18/21 11/18/21 11/18/21 22:19 22:36 23:39 Glucose POC Glucose 138 H 144 H 130 H 11/19/21 11/19/21 11/19/21 00:25 00:40 01:37 Glucose 154 H POC Glucose 149 H 178 H 11/19/21 11/19/21 11/19/21 03:49 04:58 05:30 Glucose 228 H POC Glucose 243 H 202 H 11/19/21 11/19/21 11/19/21 06:00 06:59 08:11 Glucose 224 H POC Glucose 216 H 200 H 11/19/21 11/19/21 11/19/21 08:18 08:58 10:02 Glucose POC Glucose 198 H 164 H 141 H 11/19/21 11/19/21 11/19/21 11:03 12:00 13:02 Glucose POC Glucose 172 H 132 H 106 H 11/19/21 11/19/21 13:43 13:58 Glucose 114 H POC Glucose 139 H OUTPATIENT ANTIDIABETIC REGIMEN: * Metformin 500 mg PO BIDM * Rybelsus 3 mg PO daily and Jardiance 10 mg PO daily both filled for the first time on 11/12/21 and 11/17/21 respectively * HbA1c: 14.4% (11/18/21) ASSESSMENT: 11/19 * Patient continued on insulin drip this morning. Rates at ~4 units/hr. Gap closed, ph normalized, bicarb trending upward now. Continues on dextrose fluids for DKA. * Will give 60 units of basal x 1 to help with drip transition as I anticipate blood sugars to trend down once fluids stopped * Changed to diet at lunchtime, insulin drip now running closer to 3 units/hr 11/18 * TH is a 36 year old female who presents to ED with shortness of breath, chest pain, nausea, and vomiting * Initial labs indicated severe DKA * BS mg/dL * Serum bicarbonate: 5 mmol/L * Anion gap: 28 * Beta-hydroxybutyric acid: 119 mg/dL * pH: 6.96 * IV fluids and insulin infusion initiated for DKA and IV antibiotics (ceftriaxone/azithromycin) for possible pneumonia PLAN FOR INPATIENT GLYCEMIC CONTROL: * Hold outpatient oral diabetes medications * IV insulin infusion - continue for now / likely stop once calculator prompts hold. Plan to overlap with basal insulin * Bolus insulin * Per insulin infusion calculator PLAN FOR DISCHARGE: * tbd * HbA1c of 14.4% suggests that patient will require SC basal/bolus insulin at discharge
[2021-11-19] MEDS ORDERED: [UNRECOGNIZED DRUG - OTHER] SCH (16:00)
[2021-11-19] MEDS: POT PHOSPHATE MONOBASIC W/ SOD TAB PO SCH ×3 (16:40→20:48)
[2021-11-19] MEDS: POTASSIUM CHLORIDE CRTAB 20 MEQ TABCR PO SCH ×2 (16:40→20:48)
[2021-11-19] MEDS: NSS + 20MEQ KCL 20 MEQ/1,000 ML BAG IV SCH (19:29)
[2021-11-19] MEDS ORDERED: INSULIN GLARGINE SOLOSTAR 100 UNITS/ML 3 ML PEN SC SCH (21:00)
[2021-11-20] MEDS: INSULIN ASPART PER UNIT SC SCH ×5 (04:43→20:40)
[2021-11-20] MEDS: NSS + 20MEQ KCL 20 MEQ/1,000 ML BAG IV SCH ×2 (04:50→14:09)
[2021-11-20] MEDS: LEVOTHYROXINE SODIUM 175 MCG TABLET PO SCH (05:42)
[2021-11-20] MEDS: POT PHOSPHATE MONOBASIC W/ SOD TAB PO SCH ×4 (08:29→20:52)
[2021-11-20] MEDS: POTASSIUM CHLORIDE CRTAB 20 MEQ TABCR PO SCH ×3 (08:29→20:52)
[2021-11-20] MEDS: AZITHROMYCIN 250 MG TAB PO SCH (08:29)
[2021-11-20] MEDS: ENOXAPARIN INJ 40 MG/0.4 ML SYR SQ SCH (08:30)
[2021-11-20 10:19] LABS: BUN Creatinine Ratio 4.9 (10-20); Calcium 8.3 mg/dl (8.5-10.1); Creatinine Clr Calc Pharmacy 129.6 ml/min; Est GFR (African American) 133.3 ml/min; Potassium 3.2 mmol/L (3.5-5.1)
--- NOTE | 2021-11-20 11:20 | Pharmacy Report ---
Pharmacy Glycemic Short Note 2 - Date of Service November 20, 2021 - Glycemic Short BSG Results (Last 24 hours): 11/19/21 11/19/21 11/19/21 12:00 13:02 13:43 Glucose 114 H POC Glucose 132 H 106 H 11/19/21 11/19/21 11/19/21 13:58 15:05 16:02 Glucose POC Glucose 139 H 118 H 68 L* 11/19/21 11/19/21 11/19/21 16:03 18:12 20:44 Glucose POC Glucose 71 135 H 80 11/19/21 11/20/21 11/20/21 23:38 04:34 06:08 Glucose 78 POC Glucose 109 H 70 11/20/21 07:19 Glucose POC Glucose 83 OUTPATIENT ANTIDIABETIC REGIMEN: * Metformin 500 mg PO BIDM * Rybelsus 3 mg PO daily and Jardiance 10 mg PO daily both filled for the first time on 11/12/21 and 11/17/21 respectively * HbA1c: 14.4% (11/18/21) ASSESSMENT: 11/20 * Patient transitioned off insulin drip yesterday afternoon, received 60 units of Lantus to help with drip transition * Fasting BSG 70 mg/dL - plan to see how PO intake is today and will reinitiate Lantus with lunch, likely will scale back 35-40 units based upon BSG value * Will loosen CF/CR once basal added today 11/19 * Patient continued on insulin drip this morning. Rates at ~4 units/hr. Gap closed, ph normalized, bicarb trending upward now. Continues on dextrose fluids for DKA. * Will give 60 units of basal x 1 to help with drip transition as I anticipate blood sugars to trend down once fluids stopped * Changed to diet at lunchtime, insulin drip now running closer to 3 units/hr 11/18 * TH is a 36 year old female who presents to ED with shortness of breath, chest pain, nausea, and vomiting * Initial labs indicated severe DKA * BS mg/dL * Serum bicarbonate: 5 mmol/L * Anion gap: 28 * Beta-hydroxybutyric acid: 119 mg/dL * pH: 6.96 * IV fluids and insulin infusion initiated for DKA and IV antibiotics (ceftriaxone/azithromycin) for possible pneumonia PLAN FOR INPATIENT GLYCEMIC CONTROL: * Hold outpatient oral diabetes medications * Lantus 35-40 units once daily * Bolus insulin * 110-140 / CF 30 / CR 10 PLAN FOR DISCHARGE: * tbd * HbA1c of 14.4% suggests that patient will require SC basal/bolus insulin at discharge
[2021-11-20] MEDS ORDERED: INSULIN GLARGINE SOLOSTAR 100 UNITS/ML 3 ML PEN SC ONE (13:30)
[2021-11-20] MEDS: cefTRIAXone SODIUM 2,000 MG in DEXTROSE 5% 50 ML IV SCH (14:08)
[2021-11-20] MEDS ORDERED: POTASSIUM CHLORIDE CRTAB 20 MEQ TABCR PO STA (16:25)
--- NOTE | 2021-11-20 16:27 | Hospitalist Progress Note ---
Date of Service November 20, 2021 Assessment & Plan (1) DKA (diabetic ketoacidosis): Plan: RESOLVED with use of copious IV fluids & IV insulin. Latter off. Will d/c basal IVF today. SEVERE at time of admission. initial pH 6.96 initial bicarb level 5 Uncertain if pneumonia led to DKA or if the N/V from DKA led to aspiration pneumonia. Either way treating both issues and both resolving/resolved. Appreciate pharmacy assistance. Appreciate diabetes education assistance. Cont daily, am labs. Cont basal-bolus insulin SC. Handout on DKA given. C-peptide level has returned low c/w insulin deficiency / type 1 diabetes mellitus. Sent anti-islet cell abx, anti-insulin ab, and anti-JOMAR 65 ab (auto-ab's for T1DM). (2) Acute respiratory failure with hypoxia: Plan: 2nd to b/l pneumonia. resolving. COVID/RSV/flu (repeat test) on 11/19 again negative. Unfortunately had in-hospital COVID exposure - see HPI. moving to negative pressure isolation as "PUI". Current pneumonia is either aspiration vs community-acquired. Cont to improve on rocephin/zithro - day #3 of such. Blood cx's remain negative. Cont to wean O2. (3) Pneumonia: Plan: see #2 above (4) Diabetes: Plan: c-peptide LOW c/w insulin deficiency / type 1 DM see DKA above appreciate pharmacy/DM education assistance sent anti-insulin ab, anti-JOMAR 65 ab, and islet cell ab cont basal-bolus insulin regimen will need complex regimen at discharge along with Endo/DM f/u post-discharge - preferably this week (5) Hypothyroidism: Plan: Chronic, continue Synthroid TSH mildly low - needs repeating post-discharge (6) Acute renal failure: Plan: Peak Cr 1.5, now normalized. 2nd severe DKA and lactic acidosis/dehydration. (7) Abdominal pain: Plan: 2nd DKA resolved eating well without issue (8) DVT prophylaxis: Plan: Lovenox (9) Hypokalemia: Plan: replace again PO repeat mag/K in am (10) Hypophosphatemia: Plan: kphos neutral qid phos level am Plan: PT consult requested left message for on his voicemail this evening Admission and Anticipated Discharge Date Admission Date: November 18, 2021 Subjective tele again overnight wnl unfortunately the pt's roommate of 3 days duration has tested positive for COVID patient's roommate moved to isolation patient will now have her own room moving forward as she will be a "PUI" patient is aware of this exposure fortunately she denies any new infectious symptoms to suggest contraction of COVID with respect to her own pneumonia (either aspiration vs CAP) she is feeling well cough improved no dyspnea eating well good energy feels much better than at admission o2 down from 10 L yesterday to 3 L today Review of Systems Review of Systems: gen - no fevers or chills cv - no chest pain pulm - cough - mainly dry gi - no N/V/D or abd pain Physical Exam Physical Exam: gen -looks much better today mouth - MMM; no thrush neck - no JVD heart - RRR, s1 s2, no murmur lungs - b/l basilar rales improved today, occasional wheeze; no increased work of breathing abd - soft NT ND BS+ ext - no edema, pulses 2+ b/l skin - no rash psych - a/o x 3 Results & Data Results & Data ([facility]) Vital Signs (Past 12 Hours) Vital Signs Temp Pulse Pulse Resp BP BP Pulse Ox 11/20/21 11:06 36.6 C 94 H 18 115/79 94 11/20/21 07:36 79 11/20/21 07:20 36.5 C 97 H 16 119/76 95 Laboratory Results Laboratory Results - last 24 hr 11/18/21 11/19/21 11/19/21 13:27 18:12 20:44 Sodium Potassium Chloride Carbon Dioxide Anion Gap BUN Creatinine Est Cr Clr Drug Dosing Est GFR ( Amer) Est GFR (Non-Af Amer) BUN/Creatinine Ratio Glucose POC Glucose 135 H 80 C-Peptide 0.24 L Calcium Islet Cell Antibody Anti-JOMAR 65 Antibody Insulin Autoantibody 11/19/21 11/20/21 11/20/21 23:38 04:34 06:04 Sodium Potassium Chloride Carbon Dioxide Anion Gap BUN Creatinine Est Cr Clr Drug Dosing Est GFR ( Amer) Est GFR (Non-Af Amer) BUN/Creatinine Ratio Glucose POC Glucose 109 H 70 C-Peptide Calcium Islet Cell Antibody Pending Anti-JOMAR 65 Antibody Pending Insulin Autoantibody Pending 11/20/21 11/20/21 11/20/21 06:08 07:19 11:18 Sodium 147 H Potassium 3.2 L Chloride 123 H Carbon Dioxide 16 L Anion Gap 7.0 BUN 3 L Creatinine 0.61 Est Cr Clr Drug Dosing 129.6 Est GFR ( Amer) 133.3 Est GFR (Non-Af Amer) 115.0 BUN/Creatinine Ratio 4.9 L Glucose 78 POC Glucose 83 127 H C-Peptide Calcium 8.3 L Islet Cell Antibody Anti-JOMAR 65 Antibody Insulin Autoantibody PG Care Time/CCT Total # of Minutes Spent Total Time Spent with Patient: Total time spent is greater than 50% in coordination of care (as documented) at patient's floor/unit and/or counseling patient: Coding Level of Care Code 18058 Subseq Hosp Care Lvl 3 Diagnoses DKA (diabetic ketoacidosis) E11.10 Acute respiratory failure with hypoxia J96.01 Pneumonia J18.9 Diabetes E11.9 Hypothyroidism E03.9 Acute renal failure N17.9 Abdominal pain R10.9 DVT prophylaxis Z29.9 Hypokalemia E87.6 Hypophosphatemia E83.39
[2021-11-20] MEDS ORDERED: INSULIN GLARGINE SOLOSTAR 100 UNITS/ML 3 ML PEN SC SCH (21:00)
[2021-11-21] MEDS ORDERED: LEVOTHYROXINE SODIUM 200 MCG TABLET PO SCH (06:30)
[2021-11-21] MEDS: POTASSIUM CHLORIDE CRTAB 20 MEQ TABCR PO SCH ×3 (08:01→20:25)
[2021-11-21] MEDS: ENOXAPARIN INJ 40 MG/0.4 ML SYR SQ SCH (08:02)
[2021-11-21] MEDS: AZITHROMYCIN 250 MG TAB PO SCH (08:02)
[2021-11-21] MEDS: POT PHOSPHATE MONOBASIC W/ SOD TAB PO SCH (08:02)
[2021-11-21] MEDS: INSULIN ASPART PER UNIT SC SCH ×4 (08:17→20:25)
[2021-11-21 08:55] LABS: Hematocrit (blood only) 36.7 % (37-47); Hemoglobin 12.6 g/dL (12.0-16.0); Mean Corpuscular Hemoglobin 30.4 pg (25-34); Mean Corpuscular Hgb Conc 34.3 g/dL (32-36); Mean Corpuscular Volume 88.4 fL (80-100); Mean Platelet Volume 10.6 fL (7.4-10.4); Platelet Count 268 K/uL (130-400); RDW Standard Deviation 45.8 fL (36.4-46.3); Red Blood Count 4.15 M/uL (4.2-5.4); White Blood Count 7.97 K/uL (4.8-10.8)
[2021-11-21] MEDS: ADVANCED PROBIOTIC 1250 MG CAPSULE PO SCH (08:56)
[2021-11-21] MEDS ORDERED: INSULIN GLARGINE SOLOSTAR 100 UNITS/ML 3 ML PEN SC SCH (09:00)
[2021-11-21 09:16] LABS: BUN Creatinine Ratio 3.7 (10-20); Calcium 8.6 mg/dl (8.5-10.1); Creatinine Clr Calc Pharmacy 146.4 ml/min; Est GFR (African American) 138.7 ml/min; Est GFR (Non-African American) 119.7 ml/min; Magnesium 1.7 mg/dl (1.8-2.4); Potassium 3.2 mmol/L (3.5-5.1)
[2021-11-21 09:19] LABS: Phosphorus 3.5 mg/dl (2.5-4.9)
--- NOTE | 2021-11-21 09:40 | Pharmacy Report ---
Pharmacy Glycemic Short Note 2 - Date of Service November 21, 2021 - Glycemic Short BSG Results (Last 24 hours): 11/20/21 11/20/21 11/20/21 06:08 11:18 16:50 Glucose 78 POC Glucose 127 H 90 11/20/21 11/21/21 11/21/21 20:34 07:58 08:26 Glucose 115 H POC Glucose 179 H 94 OUTPATIENT ANTIDIABETIC REGIMEN: * Metformin 500 mg PO BIDM * Rybelsus 3 mg PO daily and Jardiance 10 mg PO daily both filled for the first time on 11/12/21 and 11/17/21 respectively * HbA1c: 14.4% (11/18/21) ASSESSMENT: 11/21 * Pt has received 43 units of insulin over the past 24hrs * 35 units of basal with Lantus * 8 units of bolus with NovoLog * BSGs below goal range yesterday morning secondary to large basal insulin dose given 11/19 to transition off of insulin infusion. Basal insulin dose reduced by ~ 50% yesterday. BSGs in goal range this morning therefore will continue this dosing. Basal insulin dose is quite large as compared to a weight based dose- especially if patient does have a component of autoimmune type 1 diabetes. Will continue to reassess basal insulin daily and titrate based on BSG trends. * Post-prandial BSGs in goal range- no changes needed to CF/ CR 11/20 * Patient transitioned off insulin drip yesterday afternoon, received 60 units of Lantus to help with drip transition * Fasting BSG 70 mg/dL - plan to see how PO intake is today and will reinitiate Lantus with lunch, likely will scale back 35-40 units based upon BSG value * Will loosen CF/CR once basal added today 11/19 * Patient continued on insulin drip this morning. Rates at ~4 units/hr. Gap closed, ph normalized, bicarb trending upward now. Continues on dextrose fluids for DKA. * Will give 60 units of basal x 1 to help with drip transition as I anticipate blood sugars to trend down once fluids stopped * Changed to diet at lunchtime, insulin drip now running closer to 3 units/hr 11/18 * TH is a 36 year old female who presents to ED with shortness of breath, chest pain, nausea, and vomiting * Initial labs indicated severe DKA * BS mg/dL * Serum bicarbonate: 5 mmol/L * Anion gap: 28 * Beta-hydroxybutyric acid: 119 mg/dL * pH: 6.96 * IV fluids and insulin infusion initiated for DKA and IV antibiotics (ceftriaxone/azithromycin) for possible pneumonia PLAN FOR INPATIENT GLYCEMIC CONTROL: * Hold outpatient oral diabetes medications * Lantus 40 units once daily * Bolus insulin * 110-140 / CF 30 / CR 10 PLAN FOR DISCHARGE: * New diagnosis in April of this year- BSGs A1c not responding to oral agents. Current w/u for autoimmune DM. 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 Islet cell antibodies, JOMAR 65, and insulin autoantibody pending. Once resulted will clear the picture for diagnosis and subsequently dictate discharge recs. * Regardless of type, patient will require insulin at dc based on A1c alone. * Will try to keep regimen simple with: * Basaglar once daily in the morning. * Novolog (set dose) with each meal - patient can work with DC educator on CHO counting as an outpatient * A1c > 9% patient will need close follow up after DC * Support Patient Self-Management Healthy Lifestyle (diet, exercise, and smoking cessation) Disease self-management (SMBG) Prevention of complications (BP, Lipid goals, Immunizations) Consider outpatient Diabetes Self-Management Education & Support * Most patients on multiple-dose insulin (MDI) should SMBG Prior to meals and snacks At bedtime Prior to exercise When they suspect low blood glucose After treating low blood glucose until they are normoglycemic Prior to critical tasks such as driving Occasionally postprandially
[2021-11-21] MEDS: MAGNESIUM SULFATE / D5W 1 GM/100 ML BAG IV SCH ×2 (11:36→13:36)
[2021-11-21] MEDS: AMOXICILLIN/CLAVULANATE 875 MG TAB PO SCH (17:17)
--- NOTE | 2021-11-21 18:22 | Hospitalist Progress Note ---
Date of Service November 21, 2021 Assessment & Plan (1) DKA (diabetic ketoacidosis): Plan: RESOLVED with use of copious IV fluids & IV insulin. All IV therapies are off. SEVERE DKA at time of admission. initial pH 6.96 initial bicarb level 5 Uncertain if pneumonia led to DKA or if the N/V from DKA led to aspiration pneumonia. Either way treating both issues and both resolving/resolved. Appreciate pharmacy assistance. Appreciate diabetes education assistance. Cont daily, am labs. Cont basal-bolus insulin SC. Handout on DKA given. C-peptide level has returned low suggestive of insulin deficiency / type 1 diabetes mellitus. Sent anti-islet cell abx, anti-insulin ab, and anti-JOMAR 65 ab (auto-ab's for T1DM). Keep overnight to monitor BSGs and adjust insulins as needed. (2) Acute respiratory failure with hypoxia: Plan: 2nd to b/l pneumonia. resolved; off O2. COVID/RSV/flu (repeat test) on 11/19 again negative. Unfortunately had in-hospital COVID exposure - see below. Current pneumonia is either aspiration vs community-acquired. Cont to improve on antibiotics - today is day #4. changed rocephin to augmentin. leave zithro to completed 5 daily doses of such. Blood cx's remain negative. (3) Pneumonia: Plan: see #2 above (4) Diabetes: Plan: c-peptide LOW suggesting insulin deficiency / type 1 DM see DKA above appreciate pharmacy/DM education assistance sent anti-insulin ab, anti-JOMAR 65 ab, and islet cell ab cont basal-bolus insulin regimen will need complex regimen at discharge along with Endo/DM f/u post-discharge - preferably this week (5) Hypothyroidism: Plan: Chronic, continue Synthroid TSH mildly low - needs repeating post-discharge, although patient states her PCP down-adjusted her synthroid recently (6) Acute renal failure: Plan: Peak Cr 1.5, now normalized. 2nd severe DKA and lactic acidosis/dehydration. (7) Abdominal pain: Plan: 2nd DKA resolved eating well without issue (8) DVT prophylaxis: Plan: Lovenox (9) Hypokalemia: Plan: replace again PO repeat mag/K in am (10) Hypophosphatemia: Plan: can stop kphos neutral phos level wnl (11) Exposure to COVID-19 virus: Plan: prior roommate tested + for COVID significant exposure - they had shared the room together for 2+ days is now "PUI" remains in negative pressure room no COVID symptoms thus far plan to retest patient for COVID in am tomorrow Plan: PT consult done; did very well left message for on his voicemail yesterday did speak with him by phone tonight; questions answered hopeful for d/c home tomorrow Admission and Anticipated Discharge Date Admission Date: November 18, 2021 Subjective tele overnight wnl feels very good appetite back to normal scant cough no dyspnea or SORENSEN she feels she has got the hang of things for her diabetes she doesn't feel she could carb count at home, however she does mention that her dietary choices here are similar to what she does at home Review of Systems Review of Systems: gen- no fevers, no chills HEENT- no loss of taste or smell pulm- no cough/dyspnea GI- no N/V/D/pain Physical Exam Physical Exam: gen - looks great today mouth - MMM; no thrush neck - no JVD heart - RRR, s1 s2, no murmur lungs - b/l basilar rales - mild; decreased BS right base; scant wheeze on left abd - soft NT ND BS+ ext - no edema, pulses 2+ b/l skin - no rash psych - a/o x 3 Results & Data Results & Data ([facility]) Vital Signs (Past 12 Hours) Vital Signs Temp Pulse Pulse Resp BP Pulse Ox 11/21/21 16:00 36.8 C 79 16 111/74 95 11/21/21 15:00 77 11/21/21 11:43 36.8 C 80 16 125/84 94 11/21/21 07:30 98 H 11/21/21 07:00 36.7 C 78 16 122/80 94 Laboratory Results Laboratory Results - last 24 hr 11/20/21 11/21/21 11/21/21 20:34 07:58 08:26 WBC RBC Hgb Hct MCV MCH MCHC RDW Std Deviation RDW Coeff of Malena Plt Count MPV Sodium 145 Potassium 3.2 L Chloride 117 H Carbon Dioxide 20 L Anion Gap 8.0 BUN 2 L Creatinine 0.54 L Est Cr Clr Drug Dosing 146.4 Est GFR ( Amer) 138.7 Est GFR (Non-Af Amer) 119.7 BUN/Creatinine Ratio 3.7 L Glucose 115 H POC Glucose 179 H 94 Calcium 8.6 Phosphorus 3.5 Magnesium 1.7 L 11/21/21 11/21/21 11/21/21 08:26 11:35 16:07 WBC 7.97 RBC 4.15 L Hgb 12.6 Hct 36.7 L MCV 88.4 MCH 30.4 MCHC 34.3 RDW Std Deviation 45.8 RDW Coeff of Malena 14.0 Plt Count 268 MPV 10.6 H Sodium Potassium Chloride Carbon Dioxide Anion Gap BUN Creatinine Est Cr Clr Drug Dosing Est GFR ( Amer) Est GFR (Non-Af Amer) BUN/Creatinine Ratio Glucose POC Glucose 114 H 75 Calcium Phosphorus Magnesium PG Care Time/CCT Total # of Minutes Spent Total Time Spent with Patient: Total time spent is greater than 50% in coordination of care (as documented) at patient's floor/unit and/or counseling patient: Coding Level of Care Code 32161 Subseq Hosp Care Lvl 3 Diagnoses DKA (diabetic ketoacidosis) E11.10 Acute respiratory failure with hypoxia J96.01 Pneumonia J18.9 Diabetes E11.9 Hypothyroidism E03.9 Acute renal failure N17.9 Abdominal pain R10.9 DVT prophylaxis Z29.9 Hypokalemia E87.6 Hypophosphatemia E83.39 Exposure to COVID-19 virus Z20.822
[2021-11-22] MEDS: LEVOTHYROXINE SODIUM 175 MCG TABLET PO SCH (05:37)
[2021-11-22 06:19] LABS: Basophils # (auto) 0.02 K/uL (0-0.2); Basophils % (auto) 0.2 %; Eosinophils # (auto) 0.16 K/uL (0-0.5); Eosinophils % (auto) 1.7 %; Hemoglobin 12.6 g/dL (12.0-16.0); Immature Granulocytes # (auto) 0.06 K/uL (0.00-0.02); Immature Granulocytes % (auto) 0.6 %; Lymphocytes # (auto) 3.47 K/uL (1.2-3.4); Lymphocytes % (auto) 37.1 %; Mean Corpuscular Hemoglobin 30.2 pg (25-34); Mean Corpuscular Hgb Conc 34.1 g/dL (32-36); Mean Corpuscular Volume 88.7 fL (80-100); Mean Platelet Volume 10.4 fL (7.4-10.4); Monocytes # (auto) 0.45 K/uL (0.11-0.59); Monocytes % (auto) 4.8 %; Neutrophils % (auto) 55.6 %; Platelet Count 293 K/uL (130-400); RDW Coefficient of Variation 13.9 % (11.5-14.5); RDW Standard Deviation 45.5 fL (36.4-46.3); Red Blood Count 4.17 M/uL (4.2-5.4); White Blood Count 9.36 K/uL (4.8-10.8)
[2021-11-22 07:00] LABS: BUN Creatinine Ratio 7.5 (10-20); Calcium 8.8 mg/dl (8.5-10.1); Creatinine Clr Calc Pharmacy 171.5 ml/min; Est GFR (African American) 146.3 ml/min; Est GFR (Non-African American) 126.2 ml/min; Potassium 4.1 mmol/L (3.5-5.1)
[2021-11-22] MEDS: ADVANCED PROBIOTIC 1250 MG CAPSULE PO SCH (08:21)
[2021-11-22] MEDS: INSULIN ASPART PER UNIT SC SCH ×2 (08:21→12:10)
[2021-11-22] MEDS: POTASSIUM CHLORIDE CRTAB 20 MEQ TABCR PO SCH (08:21)
[2021-11-22] MEDS: ENOXAPARIN INJ 40 MG/0.4 ML SYR SQ SCH (08:22)
[2021-11-22] MEDS: AZITHROMYCIN 250 MG TAB PO SCH (08:22)
[2021-11-22] MEDS: AMOXICILLIN/CLAVULANATE 875 MG TAB PO SCH (08:22)
[2021-11-22] MEDS ORDERED: INSULIN GLARGINE SOLOSTAR 100 UNITS/ML 3 ML PEN SC SCH (09:00)
--- NOTE | 2021-11-22 11:55 | Pharmacy Report ---
Pharmacy Glycemic Short Note 2 - Date of Service November 22, 2021 - Glycemic Short BSG Results (Last 24 hours): 11/21/21 11/21/21 11/22/21 16:07 20:20 05:43 Glucose 69 L POC Glucose 75 127 H 11/22/21 07:51 Glucose POC Glucose 70 OUTPATIENT ANTIDIABETIC REGIMEN: * Metformin 500 mg PO BIDM * Rybelsus 3 mg PO daily and Jardiance 10 mg PO daily both filled for the first time on 11/12/21 and 11/17/21 respectively * HbA1c: 14.4% (11/18/21) ASSESSMENT: 11/22: * Reyna received 56 units of insulin over the past 24 hrs (40 units Lantus + 16 units Novolog) * BSGs well controlled: 82-231-47-127 mg/dL * Fasting BSG was borderline low at 70 mg/dL this AM * Fasting has been trending down - reduced Lantus today 11/21: * Pt has received 43 units of insulin over the past 24hrs * 35 units of basal with Lantus * 8 units of bolus with NovoLog * BSGs below goal range yesterday morning secondary to large basal insulin dose given 11/19 to transition off of insulin infusion. Basal insulin dose reduced by ~ 50% yesterday. BSGs in goal range this morning therefore will continue this dosing. Basal insulin dose is quite large as compared to a weight based dose- especially if patient does have a component of autoimmune type 1 diabetes. Will continue to reassess basal insulin daily and titrate based on BSG trends. * Post-prandial BSGs in goal range- no changes needed to CF/ CR 11/20 * Patient transitioned off insulin drip yesterday afternoon, received 60 units of Lantus to help with drip transition * Fasting BSG 70 mg/dL - plan to see how PO intake is today and will reinitiate Lantus with lunch, likely will scale back 35-40 units based upon BSG value * Will loosen CF/CR once basal added today PLAN FOR INPATIENT GLYCEMIC CONTROL: * Hold outpatient oral diabetes medications * Lantus 40 units once daily * Bolus insulin * 110-140 / CF 30 / CR 10 PLAN FOR DISCHARGE: * New diagnosis in April of this year- BSGs A1c not responding to oral agents. Current w/u for autoimmune DM. 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 Islet cell antibodies, JOMAR 65, and insulin autoantibody pending. Once resulted will clear the picture for diagnosis and subsequently dictate discharge recs. * Regardless of type, patient will require insulin at dc based on A1c alone. * Will try to keep regimen simple with: * Basaglar 30 units SC once daily in the morning. * Novolog (set dose) 5-7 units SC with each meal - patient can work with DC educator on CHO counting as an outpatient * A1c > 9% patient will need close follow up after DC * Support Patient Self-Management * Healthy Lifestyle (diet, exercise, and smoking cessation) * Disease self-management (SMBG) * Prevention of complications (BP, Lipid goals, Immunizations) * Consider outpatient Diabetes Self-Management Education & Support * Most patients on multiple-dose insulin (MDI) should SMBG * Prior to meals and snacks * At bedtime * Prior to exercise * When they suspect low blood glucose * After treating low blood glucose until they are normoglycemic * Prior to critical tasks such as driving * Occasionally postprandially
--- NOTE | 2021-11-22 15:31 | Discharge Summary ---
Date of Service date of admission - November 18, 2021 date of discharge - November 22, 2021 Admission HPI Per Admitting Provider Patient is a very pleasant 36-year-old female accompanied by her . She is quite ill whenever I see her, so while she is able to provide some of the hi story herself, a lot of it comes from . She had been in her usual seemingly good overall state of health until maybe a few days ago. During that time she started to have a lot of abdominal pain chest pain nausea vomiting and diarrhea. During that time she also got progressively weaker and her breathing sped up quite rapidly. Because she was looking quite severely ill today they decided come to the ER for further evaluation. On back story, she apparently had a chronic medical problem really only of thyroid disease, following with her PCP. He had noticed earlier this year her sugars being up a little, in discussion with him really prediabetic ranges at worst may be mid 100s, and back around April they discussed initiating Metformin versus lifestyle change. During that time she wanted to try lifestyle change, and he saw her back a few months later. During that time she still continued to feel okay, they get follow-up lab work, and she went on vacationthis was late Septemberher labs came back with a sugar greater than 300, an A1c of about 12. Because of her lack of symptoms, and the preceding appearance of insulin resistance type physiology, PCP started Metformin, and then quickly added Rybelsus. She was not well tolerate the Rybelsus due to GI side effects, so he had stopped that and doubled Metformin. Few days later, she started with the current symptom complex and presented to the ER for further evaluation. Principal Diagnosis 1. Diabetic Ketoacidosis 2. Bilateral Pneumonia, likely due to aspiration Discharge Exam gen - NAD, looks well mouth - MMM; no thrush neck - no JVD heart - RRR, s1 s2, no murmur lungs - b/l basilar rales - mild; minimal decreased BS right base; no wheeze; no increased work of breathing abd - soft NT ND BS+ ext - no edema, pulses 2+ b/l skin - no rash psych - a/o x 3 Discharge Data Allergies Allergy/AdvReac Type Severity Reaction Status Date / Time Sulfa (Sulfonamide Allergy Mild Hives Verified 11/18/21 07:24 Antibiotics) Consultations Diabetic Education Physical Therapy Pharmacy Glycemic Team Ordered Studies Chest X-Ray 11/18/21 07:24 XR chest 1V portable CLINICAL HISTORY: Shortness of breath. Chest pain. COMPARISON STUDY: No previous studies for comparison. FINDINGS: Right neck surgical clips are incidentally noted. Lung volumes are mildly diminished. Bibasilar opacities are present. There is no evidence for pulmonary edema. Cardiac size is normal. IMPRESSION: Low lung volumes with bibasilar opacities which may reflect an infectious process or atelectasis. Radiographic follow-up is recommended. ACT 112: Negative or not required by law. Electronically signed by: Quintin Thomas M.D. 11/18/2021 7:[address] 11/18/21 14:18 CT chest diagnostic w con CLINICAL HISTORY: hypoxia, ?etiology unclear, severe DKA TECHNIQUE: Multidetector row helical CT of the chest was performed. Coronal and sagittal reformations were obtained. Automated dose lowering techniques and/or adjustment according to patient size were utilized for this exam. Comparison: None available at the time of this dictation. FINDINGS: Lungs and pleura: Groundglass and consolidative opacities are seen most prominent in the lower lobes. Heart and pericardium: Heart size is normal. No pericardial effusion. Vessels: Unremarkable. Mediastinum and leonie: Unremarkable. Chest wall and lower neck: The right lobe of the thyroid is absent. Abdomen: Unremarkable. Bones: Unremarkable. IMPRESSION: Groundglass and consolidative opacities in the bilateral lower lobes compatible with aspiration and/or pneumonia. ACT 112: Negative or not required by law. Electronically signed by: Jorge Og M.D. 11/18/2021 4:21 PM Diabetes Follow up Diabetes Follow-up Needed for HgbA1c >9% Hospital Course (1) DKA (diabetic ketoacidosis): RESOLVED with use of copious IV fluids & IV insulin per customary fashion. SEVERE DKA at time of admission. initial pH 6.96 initial bicarb level 5 Uncertain if pneumonia precipitated her DKA or if the vomiting from DKA led to aspiration pneumonia. Either way treating both issues improved/resolved while here. Following resolution of her DKA her insulin infusion was transitioned over to SC basal-bolus insulin. The pharmacy glycemic team and manpower development specialist manager provided arora recommendations for her care. C-peptide level was dispatched and returned low suggestive of insulin deficiency / type 1 diabetes mellitus. Anti-islet cell ab, anti-insulin ab, and anti-JOMAR 65 ab were sent and were pending at time of discharge. If one of the antibodies is positive, and in light of the low c-peptide level, this would be further evidence for type 1 diabetes. Once she was on a 4-shot regimen of lantus with novolog she had excellent glycemic control. At discharge we advised the following regimen - * Basaglar 25 units Qam * Novolog 5 units with breakfast * Novolog 8 units with lunch * Novolog 8 units with dinner * metformin has been discontinued She was instructed to check her blood sugars before meals and at bedtime, along with PRN for symptoms of hypoglycemia or hyperglycemia. We did not give a supplemental sliding scale at discharge for ease of transition home but one should be added shortly after discharge. Suspect that she will master her insulin regimen and her diabetes care fairly quickly. She received a considerable amount of diabetes education and was taught insulin pen technique, meal planning, etc. She received several handouts on diabetes management. She will need close follow-up with her PCP within a few days of discharge. A referral has been made to [facility] to establish care with one of their diabetes specialists. (2) Acute respiratory failure with hypoxia: 2nd to b/l pneumonia. Required oxygen in the first few days of her stay. This was weaned off well before discharge. She had 3 negative COVID tests - 2 in the first 48 hours of her stay, then again on day of discharge. RSV/flu testing were negative. Current pneumonia was either aspiration vs community-acquired. Either way she received several days of IV rocephin followed by Augmentin. She also completed a 5-day course of azithromycin. Blood cultures remained negative while hospitalized. She will complete augmentin 875mg twice daily for 3 additional days at home. (3) Pneumonia: see #2 above (4) Diabetes: c-peptide LOW suggesting insulin deficiency / type 1 DM. see DKA above. anti-insulin ab, anti-JOMAR 65 ab, and islet cell ab were all pending at time of discharge. Basaglar with novolog recommended at discharge - see above. (5) Hypothyroidism: Patient reports that her synthroid regimen was recently adjusted by her PCP due to low TSH level. She takes 200mcg on Monday and . On Monday, Monday, Monday, Monday, and Monday she takes 175mcg. She will need a repeat TSH in about 6 weeks to check for euthyroid state. (6) Acute renal failure: Peak Cr 1.5 - 2nd severe DKA and lactic acidosis/dehydration. Cr was 0.4 at discharge. (7) Abdominal pain: 2nd DKA. resolved with resolution of her DKA. eating well without issue. (8) Hypokalemia: 2nd to DKA and total body depletion as well as shifts. Replaced IV and PO. K levels were normal at discharge. (9) Hypophosphatemia: repleted and normal prior to discharge. (10) Exposure to COVID-19 virus: Unfortunately the patient had an exposure to a patient with COVID-19 while she was hospitalized. Her exposure was significant as her exposure was to her roommate. Ms Buckley was made a PUI and placed in a negative pressure room after this discovery. Fortunately she had no signs or symptoms of COVID prior to discharge. A repeat COVID-19 test on day of discharge was negative. I recommended that she isolate for an additional 5 days at her home, monitoring carefully for symptoms or signs of COVID-19. Total Time Total Time Spent Total Time Spent (In Minutes): 50 Discharge Plan Discharge Items Patient Disposition: Home - Self-Care Reason For Visit: Diabetic Ketoacidosis Discharge Diagnosis: 1. Diabetic Ketoacidosis - resolved. 2. Diabetes Mellitus - either type 1 or "mix" of type 1/type 3. bilateral pneumonia - suspect due to aspiration 4. hypothyroidism 5. low potassium and low phosphorus - resolved Activity: As commented below Activity Comment: gradually increase your activities over the next 7 days Non-emergency contact: Primary Care Provider and Specialist Call non-emergency contact if: you have any medication questions, your symptoms worsen and you have a fever Follow-up/Referrals: Otoniel Barron [Primary Care Provider] - 11/24/21 11:30 am Anselmo Ellis PA-C [Physician Vice President Tax] - 01/19/22 9:30 am Diet: Carb Count or DM1 Addtl Attending Provider Instructions: Mrs Buckley, You were admitted to the hospital for a condition called "diabetic ketoacidosis" (DKA for short). Please see the handout I gave to you earlier in your stay. In DKA the body is deprived of insulin which leads to your sugar going up very high, your body's pH to fall, and you becoming very sick (nausea, vomiting, confusion, dehydration, etc). Your DKA was treated with IV fluids and IV insulin. When the DKA resolved we converted the IV insulin to subcutaneous shots/injections. Additionally you had evidence of pneumonia in the bottoms of both lungs. You received both IV and oral antibiotics. Your pneumonia is resolving nicely. You had 3 COVID tests here all of which were negative including your test on 11/22/21. I suspect your pneumonia was caused by aspiration - that is, during an episode of vomiting, some of the vomitus entered the lungs causing pneumonia. Later in your stay it was found that you had an exposure to COVID-19 infection. Thus far you are not showing signs of COVID-19 and again your test today was negative. Recommendations - 1. Check your blood sugars before breakfast, before lunch, before dinner, and at bedtime every day. Write these numbers down in a notebook so you can easily track them. Always check your blood sugar, too, if you are having symptoms of low blood sugar ("hypoglycemia") or high blood sugar. 2. Take Basaglar (glargine) long-acting insulin 25 units ONCE DAILY each morning. Start this insulin TOMORROW morning, 11/23/21. Give yourself 25 units of Basaglar starting tomorrow morning. The Basaglar will be in "pen" form. 3. Novolog quick-acting insulin via Flexpen - take at meal-time as follows - * with breakfast - 5 units * with lunch - 8 units * with dinner - 8 units Since the Novolog is so rapid acting you can take this shot 5-10 minutes before your meal, right at the start of the meal, or shortly after starting your meal. Know that your insulin amounts as listed above will likely change. As time moves forward your doctors will be able to sit with you and determine how much of each insulin is optimal to keep your diabetes under excellent control. The above amounts are a starting point. Finally, the pens that you are actively using do not need to be refrigerated. Keep the other pens that are not in use in the refrigerator until needed in the future. 4. Glucagon emergency kit - this is for rare circumstances when it is found that your blood sugar is VERY LOW and you are unable to take food, beverage, or glucose tablets/gels by mouth to raise your blood sugar. Nearly all of the time when you find a low blood sugar (less than ~70) you will be able to take something by mouth to correct the "low." See handout on "hypoglycemia." 5. Hemoglobin a1c - your value is 14.4%. With good follow-up with your doctors, learning your diabetes and insulins well, and with time you will be able to lower this value considerably. 6. Antibiotics for your pneumonia - amoxicillin 875mg twice daily x 3 more days. Take your first dose tonight with food. 7. COVID-19 exposure - for the next 5 days please isolate at home away from your family members. Wear a mask at home if you are around your or children. Look out for COVID symptoms - new fever, chills, nausea, diarrhea, worsening cough, body aches, loss of taste/smell, etc. If 5 days pass and you have not developed any new COVID symptoms you can discontinue isolation. 8. Please discontinue your metformin. Follow-up - see separate section Return to [facility] if - * you develop COVID symptoms, especially worsening shortness of breath/cough/chest pains * you have persistently low blood sugars that will not come up with eating/drinking/etc * any other concerns Continue to feel better and it was our pleasure to care for you! Dr Devlin Pending Studies at Discharge: Yes Studies:: Antibody testing to see if you have type 1 diabetes Stand-Alone Forms: My [facility], Smoking Cessation Medications and DC Order Prescriptions: New amoxicillin-pot clavulanate [Augmentin] 875-125 mg Tablet 1 tab PO BIDM 3 Days Qty: 6 RF: 0 GlucaGen Diagnostic Kit 1 mg/mL Recon Soln 1 mg IM UD PRN (Reason: hypoglycemia (low blood sugar)) Qty: 1 RF: 0 Basaglar KwikPen U-100 Insulin 100 unit/mL (3 mL) insulin pen 25 unit subcut QAM Qty: 15 RF: 1 insulin aspart U-100 [Novolog Flexpen U-100 Insulin] 100 unit/mL (3 mL) insulin pen 1 sliding scale dose subcut USEASDIRECTD Qty: 15 RF: 1 (DME) pen needle, diabetic [Pen Needle] 32 gauge x 5/32" needle See Rx Instructions .Route Qty: 100 RF: 5 (DME) lancets [OneTouch Delica Lancets] 33 gauge misc See Rx Instructions .Route Qty: 100 RF: 5 (DME) OneTouch Verio test strips Strip See Rx Instructions .Route Qty: 100 RF: 5 Continued levothyroxine 175 mcg tablet 175 mcg PO DAILY Qty: 0 RF: 0 Discontinued metformin 500 mg tablet 500 mg PO BID RF: 0 doxycycline hyclate 100 mg capsule 100 mg PO DAILY RF: 0 Discharge Orders: Discharge Order (Routine); Ordered 11/22/21 Ordered By: Schuyler Bautista/Other Patient Handouts: Novolog Pen Injector 100 IU/mL, Basaglar Pen Injector 100 IU/mL, High Blood Sugar (Hyperglycemia), Hypoglycemia (Low Blood Sugar), Healthy Meals for Diabetes, Diabetes: Inspecting Your Feet, Managing Diabetes: The A1C Test, Diabetes: Meal Planning, Understanding Type 1 Diabetes, Diabetic Ketoacidosis Admission Data Admit Date/Time: 11/18/21 12:28 Attending Provider: Schuyler Devlin Admit Provider: Jas Shin Primary Care Provider: Otoniel Barron Other Providers: Jas Shin Other Interventions: Discharge Summary Assessment (RN) Last Done: 11/22/21 15:36 Coding Level of Care Code D/C DAY MANAGEMENT >30 MINS Diagnoses DKA (diabetic ketoacidosis) E11.10 Acute respiratory failure with hypoxia J96.01 Pneumonia J18.9 Diabetes E11.9 Hypothyroidism E03.9 Acute renal failure N17.9 Abdominal pain R10.9 Hypokalemia E87.6 Hypophosphatemia E83.39 Exposure to COVID-19 virus Z20.822
[2021-12-02 02:36] LABS: Glutamic Acid Decarboxylase 65 >250 IU/mL (<5)
== END 2021-11-22 16:28 | disposition home or self-care (01) | DRG 637 ==
LOC: ED 06:53 → EDINP 12:28 → SUATTDRO 12:28 → 2S 19:45